=== PATIENT | male | born 1965 | race American Indian/Alaskan Native ===

== ENCOUNTER 2017-06-26 21:50 | Emergency (ER) | payer BC ==
[2017-06-26] MEDS ORDERED: CATAPRES PO ONE (23:20)
[2017-06-26] MEDS ORDERED: CATAPRES ONE (23:24)
[2017-06-27 00:17] LABS: Basophils # (Auto) 0.1 K/mm3 (0.0-0.1); Basophils % (Auto) 0.5 % (0.0-1.8); Eosinophils # (Auto) 0.2 K/mm3 (0.0-0.4); Hematocrit 46.7 % (35.5-45.6); Hemoglobin 15.2 gm/dl (11.8-15.2); Lymphocytes # (Auto) 2.6 K/mm3 (1.2-5.4); Lymphocytes % (Auto) 21.6 % (13.4-35.0); Mean Corpuscular HGB Conc 33 % (32-34); Mean Corpuscular Hemoglobin 29 pg (28-32); Mean Corpuscular Volume 90 fl (84-94); Monocytes # (Auto) 0.9 K/mm3 (0.0-0.8); Monocytes % (Auto) 7.7 % (0.0-7.3); Platelet Count 342 K/mm3 (140-440); Red Blood Count 5.18 M/mm3 (3.65-5.03); Red Cell Distribution Width 12.7 % (13.2-15.2)
--- NOTE | 2017-06-27 00:37 | Cat Scan Report ---
FINAL REPORT PROCEDURE: CT HEAD/BRAIN WO CON TECHNIQUE: Computerized tomography of the head was performed without contrast material. HISTORY: LAMBERT, elevated BP COMPARISON: No prior studies are available for comparison. FINDINGS: Brain: There is no evidence of intracranial hemorrhage. No parenchymal hemorrhage is seen. No mass lesions or mass effect is identified. No abnormal extra-axial fluid collections or masses are seen. There is some decreased density seen in the periventricular white matter without mass effect. This is fairly symmetric and does not exhibit any mass effect consistent with gliosis probably on the basis of microvascular disease or white matter changes of aging. Ventricles: The ventricles are normal size and are midline. Bones: No evidence of acute fracture. Paranasal sinuses: There is moderate mucosal thickening in multiple ethmoid air cells. There also nodular mucosal thickening anteriorly in the sphenoid sinus. Mild mucosal thickening seen in the right side of the frontal sinus posteriorly and laterally. Visualized paranasal sinuses otherwise appear clear. Mastoid air cells: clear IMPRESSION: There is a small amount of decreased density in the periventricular white matter without mass effect suggesting gliosis likely on the basis of microvascular disease or white matter changes of aging. No acute intracranial abnormalities are identified. No hemorrhage is seen. Mild to moderate paranasal sinus disease as described.
[2017-06-27 00:39] LABS: BUN/Creatinine Ratio 10; Blood Urea Nitrogen 14 mg/dL (9-20); Calcium 9.9 mg/dL (8.4-10.2); Hemolysis Index 13
[2017-06-27] MEDS ORDERED: CATAPRES PO ONE (10:46)
--- NOTE | 2017-06-27 10:50 | Emergency Department Report ---
ED General Adult HPI - General Chief complaint: High BP Stated complaint: HIGH BLOOD PRESSURE Time Seen by Provider: 06/27/17 10:41 Source: patient Mode of arrival: Ambulatory Limitations: No Limitations - History of Present Illness Initial comments: Patient is 51 years old male history of hypertension, noncompliant with his his medication. Patient stated that he does not remember the last time he took and a blood pressure medicine. He was sent from orthopedics office because they found that his blood pressure is 230/112. Patient stated that he is dealing with a lot of stress at home. Patient denied any suicidal or homicidal ideation. Patient denied headache, weakness numbness or tingling sensation. Patient denied any neck pain or neck stiffness no fever. No bowel or bladder incontinence. Patient denied any chest pain or shortness of breath. Severity scale (0 -10): 0 - Related Data Home Medications Medication Instructions Recorded Confirmed Last Taken One Daily Multivitamin Tablet 1 tab PO DAILY 06/27/17 06/27/17 06/26/17 Previous Rx's Medication Instructions Recorded Last Taken Type Hydrochlorothiazide [HCTZ] 25 mg PO QDAY #30 tablet 06/27/17 Unknown Rx amLODIPine [Norvasc] 5 mg PO DAILY #30 tab 06/27/17 Unknown Rx Allergies Allergy/AdvReac Type Severity Reaction Status Date / Time No Known Allergies Allergy Verified 06/26/17 23:40 ED Review of Systems ROS: Stated complaint: HIGH BLOOD PRESSURE Other details as noted in HPI Comment: All other systems reviewed and negative Constitutional: denies: chills, fever Respiratory: denies: cough, orthopnea, shortness of breath, SOB with exertion, SOB at rest Cardiovascular: denies: chest pain, palpitations, dyspnea on exertion, orthopnea , edema Gastrointestinal: denies: abdominal pain, nausea, vomiting, diarrhea, constipation, hematemesis Genitourinary: denies: urgency, frequency, hematuria Musculoskeletal: denies: back pain Neurological: denies: headache, weakness, numbness, paresthesias, confusion, abnormal gait ED Past Medical Hx - Past Medical History Previous Medical History?: Yes Hx Hypertension: Yes - Surgical History Past Surgical History?: No - Social History Smoking Status: Never Smoker Substance Use Type: None - Medications Home Medications: Home Medications Medication Instructions Recorded Confirmed Last Taken Type Hydrochlorothiazide [HCTZ] 25 mg PO QDAY #30 tablet 06/27/17 Unknown Rx One Daily Multivitamin Tablet 1 tab PO DAILY 06/27/17 06/27/17 06/26/17 History amLODIPine [Norvasc] 5 mg PO DAILY #30 tab 06/27/17 Unknown Rx ED Physical Exam - General Limitations: No Limitations General appearance: alert, in no apparent distress - Head Head exam: Present: atraumatic, normocephalic - Eye Eye exam: Present: normal appearance, PERRL - ENT ENT exam: Present: normal exam, normal orophraynx, mucous membranes moist - Respiratory Respiratory exam: Present: normal lung sounds bilaterally. Absent: respiratory distress, wheezes, rales, rhonchi, stridor, decreased breath sounds, prolonged expiratory - Cardiovascular Cardiovascular Exam: Present: regular rate, normal rhythm, normal heart sounds - GI/Abdominal GI/Abdominal exam: Present: soft, normal bowel sounds. Absent: distended, tenderness, guarding, rebound, rigid, organomegaly, mass, bruit, pulsatile mass , hernia - Extremities Exam Extremities exam: Present: normal inspection, full ROM, normal capillary refill - Back Exam Back exam: Present: normal inspection, full ROM. Absent: tenderness, CVA tenderness (R), CVA tenderness (L), muscle spasm, paraspinal tenderness, vertebral tenderness, rash noted - Neurological Exam Neurological exam: Present: alert, oriented X3, CN II-XII intact, normal gait - Psychiatric Psychiatric exam: Present: normal mood - Skin Skin exam: Present: warm ED Course Vital Signs 06/26/17 06/26/17 06/27/17 23:25 23:28 03:33 Temperature 99.1 F Pulse Rate 122 H 122 H 129 H Respiratory 18 Rate Blood Pressure 222/142 222/142 Blood Pressure 196/136 [Right] O2 Sat by Pulse 98 Oximetry 06/27/17 06/27/17 06/27/17 09:38 11:06 11:16 Temperature 98.4 F 98.7 F Pulse Rate 100 H 94 H Respiratory 18 16 Rate Blood Pressure 206/136 202/138 Blood Pressure 202/138 [Right] O2 Sat by Pulse 98 97 Oximetry 06/27/17 06/27/17 06/27/17 11:17 11:30 12:00 Temperature Pulse Rate 100 H 106 H Respiratory 16 14 10 L Rate Blood Pressure 198/136 196/139 Blood Pressure [Right] O2 Sat by Pulse 97 99 Oximetry 06/27/17 06/27/17 12:30 13:00 Temperature Pulse Rate 100 H 74 Respiratory 15 12 Rate Blood Pressure 196/139 130/86 Blood Pressure [Right] O2 Sat by Pulse 96 Oximetry - Reevaluation(s) Reevaluation #1: 06/27/17 13:15 Patient is alert, oriented 3. Patient denied any chest pain, headache or shortness of breath. Patient advised to follow-up with his primary care physician for further management. ED Medical Decision Making - Lab Data Result diagrams: 06/26/17 23:52 06/26/17 23:52 Critical care attestation.: If time is entered above; I have spent that time in minutes in the direct care of this critically ill patient, excluding procedure time. ED Disposition Clinical Impression: Malignant hypertension Disposition: DC-01 TO HOME OR SELFCARE Is pt being admited?: No Condition: Stable Instructions: Hypertension (ED) Prescriptions: amLODIPine [Norvasc] 5 mg PO DAILY #30 tab Hydrochlorothiazide [HCTZ] 25 mg PO QDAY #30 tablet Referrals: PRIMARY CARE, [Primary Care Provider] - 3-5 Days
[2017-06-27 13:05] VITALS: BP 130/86
== END 2017-06-27 14:40 | disposition home or self-care (01) ==
LOC: ED 21:50
DX: I10 Essential (primary) hypertension (principal); Z91.14 Patient's other noncompliance with medication regimen
CPT/HCPCS: 36415; 70450; 80048; 85025

== ENCOUNTER 2021-09-17 13:50 | Inpatient (IN) | payer SELFPAY ==
[2021-09-17 16:19] LABS: Hematocrit 42.7 % (35.5-45.6); Hemoglobin 13.7 gm/dl (11.8-15.2); Mean Corpuscular HGB Conc 32 % (32-34); Mean Corpuscular Volume 92 fl (84-94); Platelet Count 234 K/mm3 (140-440); Red Blood Count 4.62 M/mm3 (3.65-5.03); Red Cell Distribution Width 14.7 % (13.2-15.2)
[2021-09-17 16:30] LABS: Calcium 9.5 mg/dL (8.4-10.2)
[2021-09-17 17:16] LABS: Basophils % (Manual) 0 % (0.0-1.8); Total Cells Counted 100
[2021-09-17 17:17] LABS: Platelet Estimate Consistent w Auto; RBC Morphology Normal
--- NOTE | 2021-09-17 17:21 | XRay Report ---
XR chest routine 2V INDICATION / CLINICAL INFORMATION: ble edema. COMPARISON: None available. FINDINGS: SUPPORT DEVICES: None. HEART /PULMONARY VASCULATURE: Heart is enlarged. There is mild pulmonary vasculature congestion. LUNGS / PLEURA: No focal airspace consolidation. No sizable pleural effusion. No pneumothorax. ADDITIONAL FINDINGS: No significant additional findings. IMPRESSION: Cardiac enlargement with mild congestion of the pulmonary vasculature. Signer Name: David Gilmore MD Signed: 09/17/2021 5:17 PM Workstation Name: [id number]
[2021-09-17 17:31] LABS: Chol/HDL Ratio 2.43 %
[2021-09-17] MEDS ORDERED: FUROSEMIDE 40 MG/4 ML INJ IV ONE (17:42)
[2021-09-17] MEDS ORDERED: NITROGLYCERIN 2% OINT 1 GM TP ONE (17:42)
[2021-09-17] MEDS ORDERED: ENOXAPARIN 100 MG/1 ML INJ SUB-Q ONE (17:44)
--- NOTE | 2021-09-17 17:55 | Emergency Department Report ---
HPI - General Chief Complaint: Extremity Problem,Nontraumatic Time Seen by Provider: 09/17/21 17:14 - HPI HPI: For the last 2 weeks Mr. Owen has been experiencing dyspnea on exertion and minimal orthopnea. He denies any chest pain nausea vomiting fever shortness of breath or any other associated symptoms other than severe bilateral lower extremity swelling which has been there since about 2 weeks ago and it usually gets worse during the day because he is on his feet all day. Just walking a little bit makes the patient very short of breath. There within the makes this better is rest and elevation of his lower extremities. He has a history of high blood pressure and has not seen a doctor in a couple years. ED Past Medical Hx - Past Medical History Hx Hypertension: Yes Hx Congestive Heart Failure: No Hx Diabetes: No Hx Asthma: No Hx COPD: No Hx HIV: No Additional medical history: Back pain - Surgical History Past Surgical History?: No - Family History Family history: no significant - Social History Smoking Status: Former Smoker Substance Use Type: Alcohol (Drinks occasional wine but not an abuser) - Medications Home Medications: Home Medications Medication Instructions Recorded Confirmed Last Taken Type One Daily Multivitamin Tablet 1 tab PO DAILY 06/27/17 07/04/17 07/03/17 History amLODIPine 10 mg PO QDAY #30 tablet 07/05/17 Unknown Rx hydrALAZINE [Apresoline TAB] 100 mg PO TID #90 tab 07/05/17 Unknown Rx ED Review of Systems ROS: Stated complaint: PAIN/SWOLLEN LEGS Other details as noted in HPI Other: All other systems reviewed and negative. Physical Exam - Physical Exam Vital Signs: Vital Signs 09/17/21 09/17/21 15:28 17:21 Temperature 100.0 F H Pulse Rate 144 H 136 H Respiratory 20 24 Rate Blood Pressure 174/124 Blood Pressure 182/128 [Right] O2 Sat by Pulse 98 96 Oximetry Physical Exam: Physical Exam: Constitutional: AAOX3. No acute distress. No diaphoresis. HENT: Normocephalic. Pupils equal and reactive. No throat edema or erythema. Neck: No neck rigidity or tenderness. Cardiovascular: Heart sounds: No murmur. Tachycardic rate and regular rhythm. Pulses: Intact distal pulses. Lungs: No wheezing or rales. Chest wall: No tenderness. Abdominal: No distension. No mass/pulsatile mass. No abdominal tenderness, guarding nor rebound. Musculoskeletal: Normal range of motion. There is severe bilateral lower extremity edema going all the way up the distal half of the patient's thighs. There is no calf tenderness to palpation. Skin: Warm and dry. Neurological: Alert and oriented to person, place, and time. Psychiatric: Mood and affect normal. Normal cognition and memory. Normal judg ement. ED Course Vital Signs 09/17/21 09/17/21 15:28 17:21 Temperature 100.0 F H Pulse Rate 144 H 136 H Respiratory 20 24 Rate Blood Pressure 174/124 Blood Pressure 182/128 [Right] O2 Sat by Pulse 98 96 Oximetry - Reevaluation(s) Reevaluation #1: 09/17/21 17:53 EKG done interpreted at 1532 shows a rate of 132, tachycardia. There is severe LVH with ST segment elevation likely related to the LVH and repolarization abnormality. There are some T wave inversions in the lateral leads. Reevaluation #2: 09/17/21 18:47 Patient's blood pressure came down to the 140s over 111 after the 1 inch of Nitropaste on the 80 mg of Lasix that we gave him. He is starting to diurese. His repeat cardiac enzyme was negative. I spoke to Dr. Omar Garay who agrees that the patient is likely in congestive heart failure. He will be admitted. I spoke to Dr. Carbajal who will admit the patient. ED Medical Decision Making - Lab Data Result diagrams: 09/17/21 15:55 09/17/21 15:55 Critical care attestation.: If time is entered above; I have spent that time in minutes in the direct care of this critically ill patient, excluding procedure time. ED Disposition Clinical Impression: Congestive heart failure Disposition: 02 [facility] Is pt being admited?: Yes Does the pt Need Aspirin: Yes Condition: Stable Time of Disposition: 18:50
[2021-09-17] MEDS ORDERED: ASPIRIN 81 MG TAB CHEW PO ONE ×2 (17:56→18:48)
[2021-09-17] MEDS ORDERED: ENALAPRILAT 2.5 MG/2 ML INJ IV ONE (18:49)
--- NOTE | 2021-09-17 19:28 | History and Physical Report ---
History of Present Illness Chief complaint: I get short of breath and tired really easily History of present illness: 55 YO Male with Obesity Hypoventilation Syndrome, HTN, LDD presents to ED for evaluation. Patient reports "I get short of breath and tired very easily". Patient states that for the past 2 weeks he has experienced shortness of breath, decreased exercise tolerance, generalized weakness, dyspnea on exertion, dyspnea at rest, lower extremity edema, orthopnea, paroxysmal nocturnal dyspnea. Patient acknowledges noncompliance with antihypertensive medication. Patient acknowledges 8 pound weight gain over the past week. Patient transported to [facility] via private vehicle for further care and evaluation of the aforementioned symptoms. The patient was seen and evaluated in the emergency department. All lab and imaging studies reviewed. Patient found to have clinical symptoms as well as finding consistent with CHF decompensation, acute kidney injury, systemic inflammatory response syndrome, urinary tract infection, as well as cardiorenal syndrome. Patient admitted to telemetry and initiated on CHF protocol. Cardiology team consulted in ED. Nephrology team consulted in ED. Patient denies fever, chills, chest pain, palpitation, adductive cough, skin rash, recent contact, known exposure to COVID-19. Prior admission on 07/03/2017 reviewed. All medication listed at time of admission has been reconciled. Advanced care planning conducted in ED. Past History Past Medical History: hypertension, other (See HPI) Past Surgical History: No surgical history, Other (Reviewed) Social history: . denies: smoking, alcohol abuse, prescription drug abuse Family history: hypertension Medications and Allergies Allergies Allergy/AdvReac Type Severity Reaction Status Date / Time No Known Allergies Allergy Verified 06/26/17 23:40 Home Medications Medication Instructions Recorded Confirmed Last Taken Type One Daily Multivitamin Tablet 1 tab PO DAILY 06/27/17 07/04/17 07/03/17 History amLODIPine 10 mg PO QDAY #30 tablet 07/05/17 Unknown Rx hydrALAZINE [Apresoline TAB] 100 mg PO TID #90 tab 07/05/17 Unknown Rx Review of Systems Constitutional: weight gain, weakness, no weight loss, no fever, no chills Ears, nose, mouth and throat: no ear pain, no tinnitis, no nose pain, no nasal discharge Cardiovascular: orthopnea, shortness of breath, dyspnea on exertion, paroxysmal nocturnal dyspnea, high blood pressure, leg edema, decreased exercise tolerance, no chest pain Respiratory: no cough, no cough with sputum, no excessive sputum Gastrointestinal: no abdominal pain, no nausea, no vomiting, no diarrhea Genitourinary Male: no hematuria, no flank pain, no discharge, no urinary frequency, no urinary hesitancy Rectal: no pain, no incontinence, no bleeding Musculoskeletal: no neck stiffness, no neck pain, no shooting arm pain, no arm numbness/tingling, no low back pain Integumentary: no rash, no pruritis, no redness, no sores, no wounds Neurological: no head injury, no paralysis, no weakness, no tingling, no seizures, no syncope Psychiatric: no anxiety, no memory loss, no sleep disturbances, no hypersomnia, no suicidal ideation Endocrine: no cold intolerance, no heat intolerance, no polyuria Hematologic/Lymphatic: no easy bruising, no easy bleeding Allergic/Immunologic: no allergic rhinitis Exam - Constitutional Vitals: Temp Pulse Resp BP Pulse Ox 100.0 F H 130 H 24 149/111 96 09/17/21 15:28 09/17/21 18:40 09/17/21 17:21 09/17/21 18:40 09/17/21 17:21 General appearance: Present: mild distress, obese - EENT Eyes: Present: PERRL ENT: hearing intact, clear oral mucosa - Neck Neck: Present: supple, normal ROM - Respiratory Respiratory effort: normal Respiratory: bilateral: rales - Cardiovascular Heart Sounds: Present: S1 & S2. Absent: rub, click - Extremities Extremities: pulses symmetrical Extremity abnormal: edema Peripheral Pulses: within normal limits - Abdominal General gastrointestinal: Present: soft, non-tender, non-distended, normal bowel sounds Male genitourinary: Present: normal - Integumentary Integumentary: Present: clear, warm, dry - Musculoskeletal Musculoskeletal: gait normal, strength equal bilaterally - Psychiatric Psychiatric: appropriate mood/affect, intact judgment & insight - Neurologic Neurologic: CNII-XII intact, moves all extremities HEART Score - HEART Score Troponin: Troponin T 0.029 ng/mL (0.00-0.029) 09/17/21 17:53 Results - Labs CBC & Chem 7: 09/17/21 15:55 09/17/21 15:55 Labs: Abnormal lab results 09/17/21 09/17/21 09/17/21 Range/Units 15:55 15:55 15:55 WBC 13.7 H (4.5-11.0) K/mm3 Seg Neuts % (Manual) 91.0 H (40.0-70.0) % Lymphocytes % (Manual) 6.0 L (13.4-35.0) % Seg Neutrophils # Man 12.5 H (1.8-7.7) K/mm3 Lymphocytes # (Manual) 0.8 L (1.2-5.4) K/mm3 BUN 24 H (9-20) mg/dL Creatinine 2.0 H (0.8-1.3) mg/dL Glucose 129 H (75-100) mg/dL Troponin T 0.034 H (0.00-0.029) ng/mL NT-Pro-B Natriuret Pep 8008 H (0-900) pg/mL Assessment and Plan - Patient Problems (1) Congestive heart failure Status: Acute Qualifiers: Heart failure type: systolic Heart failure chronicity: acute Qualified Code(s): I50.21 - Acute systolic (congestive) heart failure Plan to address problem: Strict I's/O, monitoring output every shift, daily weight, afterload reduction, blood pressure control, thyroid panel, magnesium level, cardiology team consulted in ED, echocardiogram ordered and is pending at time of admission, supplemental oxygen. (2) Acute kidney injury (CORBY) with acute tubular necrosis (ATN) Status: Acute Plan to address problem: BMP, IV fluid resuscitation therapy as clinical indicated, repeat BMP in a.m. to monitor serum creatinine as well as GFR. (3) Cardiorenal syndrome Status: Acute Plan to address problem: supportive care, monitor fluid balance, strict I's/O, nephrology team consulted in ED (4) SIRS (systemic inflammatory response syndrome) Status: Acute Plan to address problem: CBC, chest x-ray, urinalysis, empiric IV antibiotic therapy x1 dose, repeat CBC in a.m. (5) Accelerated hypertension Status: Acute Plan to address problem: Monitor blood pressure every shift, continue medical management. (6) UTI (urinary tract infection) Status: Acute Qualifiers: Encounter type: initial encounter Plan to address problem: Urinalysis, IV antibiotic therapy, (7) DVT prophylaxis Status: Acute Plan to address problem: SCD to bilateral lower extremities while in bed (8) Advance care planning Status: Acute Plan to address problem: Disease education conducted, care plan discussed, diagnoses discussed, prognosis discussed, patient is full code. Patient acknowledges understanding and agreement with care plan, +30 minutes. (9) Preventative health care Status: Acute Plan to address problem: Patient counseled regarding balanced diet, risk factor reduction, increase physical activity discharge, meal planning, outpatient follow-up with primary care physician for all age-appropriate and risk factor appropriate screening test. +30 minutes.
[2021-09-17] MEDS ORDERED: ALBUTEROL 2.5 MG/3 ML NEBU IH PRN (19:30)
[2021-09-17] MEDS ORDERED: HYDROmorphone 0.5 MG/0.5 ML INJ IV PRN (19:30)
[2021-09-17] MEDS ORDERED: oxyCODONE /ACETAMINOPHEN 5-325MG TAB PO PRN (19:30)
[2021-09-17] MEDS ORDERED: ONDANSETRON 4 MG/2 ML INJ IV PRN (19:30)
[2021-09-17] MEDS ORDERED: ACETAMINOPHEN 325 MG TAB PO PRN (19:30)
[2021-09-17 20:11] LABS: Free T4 (Free Thyroxine) 1.48 ng/dL (0.76-1.46)
[2021-09-17] MEDS ORDERED: ASPIRIN 81 MG TAB CHEW ONE (21:38)
[2021-09-17] MEDS ORDERED: LISINOPRIL 5 MG TAB PO SCH (22:00)
[2021-09-17] MEDS ORDERED: METOPROLOL TARTRATE 25 MG TAB PO SCH (22:00)
[2021-09-18 05:13] LABS: Basophils % (Auto) 0.2 % (0.0-1.8); Hemoglobin 12.9 gm/dl (11.8-15.2); Lymphocytes # (Auto) 0.7 K/mm3 (1.2-5.4); Lymphocytes % (Auto) 7.1 % (13.4-35.0); Mean Corpuscular HGB Conc 34 % (32-34); Mean Corpuscular Volume 92 fl (84-94); Monocytes # (Auto) 0.3 K/mm3 (0.0-0.8); Monocytes % (Auto) 3.3 % (0.0-7.3); Platelet Count 218 K/mm3 (140-440); Red Blood Count 4.12 M/mm3 (3.65-5.03); Red Cell Distribution Width 14.4 % (13.2-15.2)
[2021-09-18 05:48] LABS: Calcium 8.9 mg/dL (8.4-10.2)
[2021-09-18] MEDS: FUROSEMIDE 40 MG/4 ML INJ IV SCH ×2 (06:04→18:07)
--- NOTE | 2021-09-18 09:52 | Event Note ---
Full consult dictated. Thanks.
[2021-09-18] MEDS: METOPROLOL TARTRATE 25 MG TAB PO SCH ×2 (09:56→21:00)
--- NOTE | 2021-09-18 10:25 | Consultation ---
History of Present Illness - Reason for Consult Consult date: 09/18/21 chronic renal failure - History of Present Illness The patient is a 42 YO male with history significant for Morbid Obesity, HTN, LDD and CKD-3 who presented to [facility] ED 09/17/21 with c/o sob and LE swelling for past 2-3 weeks. Admits to decreased exercise tolerance, dyspnea on exertion, dyspnea at rest, orthopnea, paroxysmal nocturnal dyspnea, bilateral lower extremity swelling and increase in the abdominal girth. Patient acknowledges noncompliance with antihypertensive medication. Patient denies fever, chills, chest pain, palpitations, dysuria, hematuria, skin rash, recent contact, or known exposure to COVID-19, syncope. Denies kidney stone or NSAID use. CXR showed Cardiomegaly and central pulmonary venous congestion. Labs notable for Creat 2 and BUN 24. Patient was admitted with decompensated CHF and Cardiorenal syndrome. Nephrology consulted for further evaluation and treatment of CORBY. Past History Past Medical History: hypertension, other (See HPI) Past Surgical History: No surgical history, Other (Reviewed) Social history: . denies: smoking, alcohol abuse, prescription drug abuse Family history: hypertension Medications and Allergies Allergies Allergy/AdvReac Type Severity Reaction Status Date / Time No Known Allergies Allergy Verified 06/26/17 23:40 Home Medications Medication Instructions Recorded Confirmed Last Taken Type One Daily Multivitamin Tablet 1 tab PO DAILY 06/27/17 09/18/21 09/14/21 History amLODIPine 10 mg PO QDAY #30 tablet 07/05/17 09/18/21 08/23/21 Rx hydrALAZINE [Apresoline TAB] 100 mg PO TID #90 tab 07/05/17 09/18/21 08/23/21 Rx Active Meds: Active Medications Acetaminophen (Acetaminophen 325 Mg Tab) 650 mg PO Q4H PRN PRN Reason: Pain MILD(1-3)/Fever >100.5/LAMBERT Albuterol (Albuterol 2.5 Mg/3 Ml Nebu) 2.5 mg IH Q4HRT PRN PRN Reason: Shortness Of Breath Furosemide (Furosemide 40 Mg/4 Ml Inj) 40 mg IV BID@0600,1800 JIMMY Last Admin: 09/18/21 06:04 Dose: 40 mg Hydromorphone HCl (Hydromorphone 0.5 Mg/0.5 Ml Inj) 0.5 mg IV Q23H PRN PRN Reason: Pain , Severe (7-10) Metoprolol Tartrate (Metoprolol Tartrate 25 Mg Tab) 25 mg PO BID [facility] Last Admin: 09/18/21 09:56 Dose: 25 mg Ondansetron HCl (Ondansetron 4 Mg/2 Ml Inj) 4 mg IV Q8H PRN PRN Reason: Nausea And Vomiting Oxycodone/Acetaminophen (Oxycodone /Acetaminophen 5-325mg Tab) 1 tab PO Q6H PRN PRN Reason: Pain, Moderate (4-6) Sodium Chloride (Sodium Chloride 0.9% 10 Ml Flush Syringe) 10 ml IV BID [facility] Last Admin: 09/18/21 09:56 Dose: 10 ml Sodium Chloride (Sodium Chloride 0.9% 10 Ml Flush Syringe) 10 ml IV PRN PRN PRN Reason: LINE FLUSH Review of Systems All systems: negative Exam - Vital Signs Vital signs: Vital Signs Temp Pulse Resp BP Pulse Ox 100.0 F H 144 H 20 174/124 98 09/17/21 15:28 09/17/21 15:28 09/17/21 15:28 09/17/21 15:28 09/17/21 15:28 Results - Lab Results 09/18/21 04:37 09/18/21 04:37 Most recent lab results Calcium 8.9 mg/dL (8.4-10.2) 09/18/21 04:37 Magnesium 2.10 mg/dL (1.7-2.3) 09/17/21 17:10 Assessment and Plan 1. CKD stage 3: Known h/o CKD-3. Since 2018 creatinine level has increased from 1.7 to 1.9. Most likely progressive CKD. Renal US negative. Urine studies ordered. Monitor renal function and UOP. Creatinine leveled off. Avoid nephrotoxic agents. Meds dosage based on GFR. 2. FEN: Volume overload, on IV Lasix. Monitor lytes and volume status. 3. Decompensated CHF, POA: Unknown EF. Echo pending. Strict I's/O, monitor urine output every shift, daily weight, afterload reduction, blood pressure control, diuresis. Cardiology team aware of this patient. 4. Hypertensive urgency: Monitor BP. Will sign of. F/u in 1-2 weeks after discharge. Please call with any questions. Subjective: Patient was seen and examined at the chairside. Examination: General appearance: well-developed, well-nourished, appears stated age, obese, no distress HEENT: ATNC, no icterus Neck: trachea midline, JVD Respiratory: diminished breath sounds b/l Cardiology: regular, S1S2, no murmur Gastrointestinal: soft, obese, normoactive bowel sounds, not tender, ND Integumentary: no rash Neurologic: AO, able to move extremities Ext: 3+ LE edema noted
--- NOTE | 2021-09-18 11:26 | Progress Note ---
Assessment and Plan 55-year-old male presented to the hospital with complaints of reported bleeding admitted for possible CHF exacerbation. 09/18: Continue diuresis as tolerated, follow 2D echocardiogram report, monitor BMP. Cardiology and nephrology following Assessment and plan: (1) Congestive heart failure Status: Acute Qualifiers: Heart failure type: systolic Heart failure chronicity: acute Qualified Code(s): I50.21 - Acute systolic (congestive) heart failure Plan to address problem: Strict I's/O, monitoring output every shift, daily weight, afterload reduction, blood pressure control, thyroid panel, magnesium level, cardiology team consulted in ED, echocardiogram ordered and is pending at time of admission, supplemental oxygen. (2) Acute kidney injury (CORBY) with acute tubular necrosis (ATN) Status: Acute Plan to address problem: BMP, IV fluid resuscitation therapy as clinical indicated, repeat BMP in a.m. to monitor serum creatinine as well as GFR. (3) Cardiorenal syndrome Status: Acute Plan to address problem: supportive care, monitor fluid balance, strict I's/O, nephrology team consulted in ED (4) SIRS (systemic inflammatory response syndrome) Status: Acute Plan to address problem: CBC, chest x-ray, urinalysis, empiric IV antibiotic therapy x1 dose, repeat CBC in a.m. (5) Accelerated hypertension Status: Acute Plan to address problem: Monitor blood pressure every shift, continue medical management. (6) UTI (urinary tract infection) Status: Acute Qualifiers: Encounter type: initial encounter Plan to address problem: Urinalysis, IV antibiotic therapy, (7) DVT prophylaxis Status: Acute Plan to address problem: SCD to bilateral lower extremities while in bed (8) Advance care planning Status: Acute Plan to address problem: Disease education conducted, care plan discussed, diagnoses discussed, prognosis discussed, patient is full code. Patient acknowledges understanding and agreement with care plan, +30 minutes. (9) Preventative health care Status: Acute Plan to address problem: Patient counseled regarding balanced diet, risk factor reduction, increase physical activity discharge, meal planning, outpatient follow-up with primary care physician for all age-appropriate and risk factor appropriate screening test. +30 minutes. Subjective Date of service: 09/18/21 Interval history: Patient seen and examined. Medical records and medication list reviewed. No acute event overnight noted by the RN. Patient complains of extensive bilateral lower extremity swelling. Patient is tolerating diet. Discussed plan of care at bedside with patient. Objective - Exam Narrative Exam: GENERAL: well-developed and morbidly obese -[place] male lying on bed appeared to be in no discomfort. HEENT: Normocephalic. Atraumatic. No conjunctival congestion or icterus. Patient has moist mucous membranes. NECK: Supple. Trachea midline. CHEST/LUNGS: Diminished breath sound bilaterally HEART/CARDIOVASCULAR: Regular in rate and rhythm. S1 and S2 positive. ABDOMEN: Abdomen is soft, nontender. Patient has normal bowel sounds. SKIN: There is no rash. Warm and dry. NEURO: No focal motor deficit. Follows command. MUSCULOSKELETAL: No joint effusion or tenderness. EXTRIMITY: +ve edema, no cyanosis or clubbing. PSYCH: Cooperative. - Constitutional Vitals: Vital Signs - 12hr 09/18/21 09/18/21 09/18/21 00:56 00:58 02:18 Temperature 97.7 F 100.0 F H Pulse Rate 115 H 127 H 112 H Respiratory 22 18 Rate Blood Pressure 135/105 Blood Pressure 120/78 [Right] O2 Sat by Pulse 95 95 Oximetry 09/18/21 09/18/21 09/18/21 02:30 04:33 07:15 Temperature 99.6 F 98.6 F Pulse Rate 50 L 123 H Respiratory 18 18 Rate Blood Pressure 137/93 149/95 Blood Pressure [Right] O2 Sat by Pulse 98 96 97 Oximetry 09/18/21 10:00 Temperature Pulse Rate 123 H Respiratory Rate Blood Pressure Blood Pressure [Right] O2 Sat by Pulse 97 Oximetry - Labs CBC & Chem 7: 09/18/21 04:37 09/19/21 04:39 Labs: Abnormal lab results 09/17/21 09/17/21 09/17/21 Range/Units 15:55 15:55 15:55 WBC 13.7 H (4.5-11.0) K/mm3 Lymph % (Auto) (13.4-35.0) % Lymph # (Auto) (1.2-5.4) K/mm3 Seg Neutrophils % (40.0-70.0) % Seg Neuts % (Manual) 91.0 H (40.0-70.0) % Lymphocytes % (Manual) 6.0 L (13.4-35.0) % Seg Neutrophils # (1.8-7.7) K/mm3 Seg Neutrophils # Man 12.5 H (1.8-7.7) K/mm3 Lymphocytes # (Manual) 0.8 L (1.2-5.4) K/mm3 Carbon Dioxide (22-30) mmol/L BUN 24 H (9-20) mg/dL Creatinine 2.0 H (0.8-1.3) mg/dL Glucose 129 H (75-100) mg/dL Troponin T 0.034 H (0.00-0.029) ng/mL NT-Pro-B Natriuret Pep 8008 H (0-900) pg/mL Free T4 (0.76-1.46) ng/dL 09/17/21 09/18/21 09/18/21 Range/Units 17:10 04:37 04:37 WBC (4.5-11.0) K/mm3 Lymph % (Auto) 7.1 L (13.4-35.0) % Lymph # (Auto) 0.7 L (1.2-5.4) K/mm3 Seg Neutrophils % 89.4 H (40.0-70.0) % Seg Neuts % (Manual) (40.0-70.0) % Lymphocytes % (Manual) (13.4-35.0) % Seg Neutrophils # 9.1 H (1.8-7.7) K/mm3 Seg Neutrophils # Man (1.8-7.7) K/mm3 Lymphocytes # (Manual) (1.2-5.4) K/mm3 Carbon Dioxide 20 L (22-30) mmol/L BUN 26 H (9-20) mg/dL Creatinine 1.9 H (0.8-1.3) mg/dL Glucose 112 H (75-100) mg/dL Troponin T (0.00-0.029) ng/mL NT-Pro-B Natriuret Pep (0-900) pg/mL Free T4 1.48 H (0.76-1.46) ng/dL HEART Score - HEART Score Troponin: Troponin T 0.029 ng/mL (0.00-0.029) 09/17/21 17:53
--- NOTE | 2021-09-18 15:38 | Ultrasound Report ---
ULTRASOUND RENAL INDICATION / CLINICAL INFORMATION: Acute renal failure.. COMPARISON: None available. FINDINGS: RIGHT KIDNEY: Length = 11.1 cm. - Echogenicity: Normal. - Parenchymal Thickness: Normal. - Hydronephrosis: None. - Cyst / Mass: None. - Stones: None seen. LEFT KIDNEY: Length = 9.0 cm. - Echogenicity: Normal. - Parenchymal Thickness: Normal. - Hydronephrosis: None. - Cyst / Mass: None. - Stones: None seen. URINARY BLADDER: No significant abnormality. FREE FLUID: Trace free fluid in the abdomen ADDITIONAL FINDINGS: Incidental contracted appearance of the gallbladder IMPRESSION: 1. No acute renal abnormality. 2. Trace ascites and contracted appearance of the gallbladder. Signer Name: Darius Fry MD Signed: 09/18/2021 3:33 PM Workstation Name: [id number]
--- NOTE | 2021-09-18 23:44 | Consultation ---
DATE OF CONSULTATION: 09/18/2021 CARDIOLOGY CONSULTATION REASON FOR CONSULTATION: Advice and opinion regarding shortness of breath. REFERRING PHYSICIAN: Dr. Carbajal HISTORY OF PRESENT ILLNESS: The patient is a very pleasant 55-year-old -[place] gentleman with history of obstructive sleep apnea, hypertension, presents here with shortness of breath for the past 2 weeks, describes dyspnea on exertion, orthopnea, lower extremity edema, PND. He acknowledges noncompliance with antihypertensive regime. 8-pound weight gain over the past week. No recent cardiology evaluation. He is seen on telemetry. Denies any chest pain, shortness of breath. States he feels a lot better. PAST MEDICAL HISTORY: Hypertension, sleep apnea. PAST SURGICAL HISTORY: No surgical history known. SOCIAL HISTORY: . Denies smoking or alcohol. ALLERGIES: No known drug, food, or environmental allergies. REVIEW OF SYSTEMS: As per HPI. No chest pain, blurred vision, headache, nausea or vomiting. Positive leg swelling. No diaphoresis, no hematochezia, melena, hemoptysis or cold or heat intolerance. INPATIENT AND OUTPATIENT MEDICATIONS: Reviewed. PHYSICAL EXAMINATION: VITAL SIGNS: Blood pressure is 140/90. He is afebrile. Tele reveals sinus rhythm, heart rate in the 100-110 range. No dysrhythmias. GENERAL: This is a middle-aged -[place] gentleman in no apparent distress, oriented x 3. HEENT: Sclerae are anicteric. PERRL. NECK: Supple, no mass, no JVD. CHEST: Decreased breath sounds, bibasilar. Overall, moderate air movement. CARDIOVASCULAR: Tachycardic, S1, S2. ABDOMEN: Soft, nontender, nondistended. Normoactive bowel sounds in 4 quadrants. No mass or bruits. EXTREMITIES: 2+ pitting edema in bilateral lower extremities. SKIN: Warm and intact. No rashes. LABORATORY DATA: Reveals a creatinine of 2.0 yesterday, 1.9 today. ProBNP is 8000. Free T4 is 1.4. TSH is 1.7. His EKG reveals sinus tachycardia and LVH. Heart rate now is in the 100-105 range. First troponin is normal. Bicarbonate is 26. Potassium 3.9. ASSESSMENT AND PLAN: In summary, the patient is a pleasant 55-year-old -[place] gentleman. Acute on chronic dyspnea, likely due to congestive heart failure of unclear etiology. Follow up echocardiogram. The patient also has questionable acute kidney injury. We will hold CARLTON inhibitor. We will double metoprolol. Continue IV Lasix. Recommend Nephrology consultation. Watch blood pressure. Cardiac diet. Follow up echocardiography. Thank you for this consultation. I will be happy to follow along with you. TID: [id number] RECEIPT: [id number] THANH
[2021-09-19] MEDS: FUROSEMIDE 40 MG/4 ML INJ IV SCH ×2 (05:09→18:22)
[2021-09-19 05:30] LABS: Bacteria,Urine 1+ /HPF (Negative); Bilirubin,Urine NEG (Negative); Blood,Urine NEG (Negative); Color,Urine Amber (Yellow); Hyaline Casts,Urine 3 /LPF; Mucus,Urine FEW /HPF
[2021-09-19 05:38] LABS: Creatinine,Urine 182.5 mg/dL (0.1-20.0); Protein/Creatinine Ratio,Urine 0.3
[2021-09-19 05:41] LABS: Calcium 8.4 mg/dL (8.4-10.2)
[2021-09-19] MEDS: METOPROLOL TARTRATE 25 MG TAB PO SCH (10:21)
--- NOTE | 2021-09-19 10:46 | Progress Note ---
Assessment and Plan Patient is clinically improved. Telemetry reveals mild sinus tachycardia. No dysrhythmias or ventricular tachycardia See full dictated consultation yesterday. Continue with IV Lasix. Double beta-brandi for better blood pressure control. Heparin for DVT prophylaxis. Follow-up on echocardiography. - Patient Problems (1) Congestive heart failure Current Visit: Yes Status: Acute (2) Acute kidney injury (CORBY) with acute tubular necrosis (ATN) Current Visit: No Status: Acute (3) Cardiorenal syndrome Current Visit: No Status: Acute (4) Hypertensive urgency, malignant Current Visit: No Status: Acute Subjective Interval history: Patient feels much better today. Shortness of breath and leg swelling is improved. Objective Vital Signs Temp Pulse Resp BP BP Pulse Ox 09/19/21 08:06 98.7 F 107 H 18 149/110 93 09/19/21 05:10 98.4 F 105 H 140/102 97 09/19/21 00:38 102 H 09/18/21 23:50 98.4 F 110 H 18 131/89 98 09/18/21 21:02 96 09/18/21 21:00 129 H 143/104 09/18/21 20:00 127 H 09/18/21 19:59 99.6 F 129 H 20 143/104 97 09/18/21 19:43 98 09/18/21 16:01 98.6 F 121 H 18 150/110 94 09/18/21 11:29 98.6 F 109 H 18 134/95 94 - Labs and Meds Comprehensive Metabolic Panel 09/19/21 Range/Units 04:39 Sodium 135 L (137-145) mmol/L Potassium 4.6 (3.6-5.0) mmol/L Chloride 101.7 (98-107) mmol/L Carbon Dioxide 21 L (22-30) mmol/L BUN 37 H (9-20) mg/dL Creatinine 1.9 H (0.8-1.3) mg/dL Glucose 110 H (75-100) mg/dL Calcium 8.4 (8.4-10.2) mg/dL
--- NOTE | 2021-09-19 12:45 | Progress Note ---
Assessment and Plan 55-year-old male presented to the hospital with complaints of reported bleeding admitted for possible CHF exacerbation. 09/18: Continue diuresis as tolerated, follow 2D echocardiogram report, monitor BMP. Cardiology and nephrology following 09/19: 2D echo reveals EF of 15 to 20%, renal ultrasound showed no acute abnormality. Continue aggressive diuresis, continue to monitor renal function and follow cardiology recommendation Assessment and plan: (1) Congestive heart failure Status: Acute Qualifiers: Heart failure type: systolic Heart failure chronicity: acute Qualified Code(s): I50.21 - Acute systolic (congestive) heart failure Plan to address problem: Strict I's/O, monitoring output every shift, daily weight, afterload reduction, blood pressure control, thyroid panel, magnesium level, cardiology team consulted in ED, echocardiogram ordered and is pending at time of admission, supplemental oxygen. (2) Acute kidney injury (CORBY) with acute tubular necrosis (ATN) Status: Acute Plan to address problem: BMP, IV fluid resuscitation therapy as clinical indicated, repeat BMP in a.m. to monitor serum creatinine as well as GFR. (3) Cardiorenal syndrome Status: Acute Plan to address problem: supportive care, monitor fluid balance, strict I's/O, nephrology team consulted in ED (4) SIRS (systemic inflammatory response syndrome) Status: Acute Plan to address problem: CBC, chest x-ray, urinalysis, empiric IV antibiotic therapy x1 dose, repeat CBC in a.m. (5) Accelerated hypertension Status: Acute Plan to address problem: Monitor blood pressure every shift, continue medical management. (6) UTI (urinary tract infection) Status: Acute Qualifiers: Encounter type: initial encounter Plan to address problem: Urinalysis, IV antibiotic therapy, (7) DVT prophylaxis Status: Acute Plan to address problem: SCD to bilateral lower extremities while in bed (8) Advance care planning Status: Acute Plan to address problem: Disease education conducted, care plan discussed, diagnoses discussed, prognosis discussed, patient is full code. Patient acknowledges understanding and agreement with care plan, +30 minutes. (9) Preventative health care Status: Acute Plan to address problem: Patient counseled regarding balanced diet, risk factor reduction, increase physical activity discharge, meal planning, outpatient follow-up with primary care physician for all age-appropriate and risk factor appropriate screening test. +30 minutes. Subjective Date of service: 09/19/21 Interval history: Patient seen and examined. Medical records and medication list reviewed. No acute event overnight noted by the RN. Patient cont to have bilateral lower extremity swelling. Patient is tolerating diet. Discussed plan of care at bedside with patient. Objective - Exam Narrative Exam: GENERAL: well-developed and morbidly obese -Stateless male lying on bed appeared to be in no discomfort. HEENT: Normocephalic. Atraumatic. No conjunctival congestion or icterus. Patient has moist mucous membranes. NECK: Supple. Trachea midline. CHEST/LUNGS: Diminished breath sound bilaterally HEART/CARDIOVASCULAR: Regular in rate and rhythm. S1 and S2 positive. ABDOMEN: Abdomen is soft, nontender. Patient has normal bowel sounds. SKIN: There is no rash. Warm and dry. NEURO: No focal motor deficit. Follows command. MUSCULOSKELETAL: No joint effusion or tenderness. EXTRIMITY: +ve edema, no cyanosis or clubbing. PSYCH: Cooperative. - Constitutional Vitals: Vital Signs - 12hr 09/19/21 09/19/21 09/19/21 05:10 08:06 10:00 Temperature 98.4 F 98.7 F Pulse Rate 105 H 107 H 101 H Respiratory 18 Rate Blood Pressure 149/110 Blood Pressure 140/102 [Right] O2 Sat by Pulse 97 93 97 Oximetry 09/19/21 11:25 Temperature 98.6 F Pulse Rate 101 H Respiratory 18 Rate Blood Pressure 135/99 Blood Pressure [Right] O2 Sat by Pulse 97 Oximetry - Labs CBC & Chem 7: 09/18/21 04:37 09/20/21 04:56 Labs: Abnormal lab results 09/18/21 09/19/21 Range/Units Unknown 04:39 Sodium 135 L (137-145) mmol/L Carbon Dioxide 21 L (22-30) mmol/L BUN 37 H (9-20) mg/dL Creatinine 1.9 H (0.8-1.3) mg/dL Glucose 110 H (75-100) mg/dL Urine Creatinine 182.5 H (0.1-20.0) mg/dL Urine Total Protein 54 H (5-11.8) mg/dL HEART Score - HEART Score Troponin: Troponin T 0.029 ng/mL (0.00-0.029) 09/17/21 17:53
[2021-09-19] MEDS: HEPARIN 5,000 UNIT/1 ML VIAL SUB-Q SCH ×2 (14:52→21:22)
[2021-09-19] MEDS: METOPROLOL TARTRATE 50 MG TAB PO SCH (21:23)
[2021-09-20] MEDS: HEPARIN 5,000 UNIT/1 ML VIAL SUB-Q SCH ×3 (05:38→21:14)
[2021-09-20] MEDS: FUROSEMIDE 40 MG/4 ML INJ IV SCH ×2 (05:38→17:39)
[2021-09-20 06:20] LABS: Calcium 8.5 mg/dL (8.4-10.2)
--- NOTE | 2021-09-20 08:35 | Progress Note ---
Assessment and Plan 55-year-old -[place] gentleman: 1. Acute hypoxemic respiratory failure due to heart failure with reduced ejection fraction * Continue beta-blockade * Echocardiogram revealed ejection fraction of 15 to 20% * Continue IV Lasix * Nearing euvolemia 2. ?CORBY * Likely due to cardiorenal syndrome * Hold CARLTON or ARB * Nephrology is following 3. Physiologic sinus tachycardia due to #1 4. Hypertension 5. Hypertensive heart disease Patient is clinically improve and near euvolemia. Echocardiogram reveals severe LV dysfunction. Add hydralazine for better blood pressure control. Nuclear stress test in a.m. to exclude ischemic etiology of cardiomyopathy. Long discussion with the patient regarding our findings and plan of care. - Patient Problems (1) Congestive heart failure Current Visit: Yes Status: Acute (2) Acute kidney injury (CORBY) with acute tubular necrosis (ATN) Current Visit: No Status: Acute (3) Cardiorenal syndrome Current Visit: No Status: Acute (4) Hypertensive urgency, malignant Current Visit: No Status: Acute Subjective Interval history: Patient feels much better today. Shortness of breath and leg swelling is improved. Objective Vital Signs Temp Pulse Resp BP Pulse Ox 09/20/21 05:09 106 H 98 09/20/21 04:46 98.4 F 20 142/106 09/19/21 23:12 96 09/19/21 22:00 103 H 09/19/21 21:23 58 L 09/19/21 19:55 97 09/19/21 19:48 99.2 F 56 L 18 136/98 96 09/19/21 15:44 98.6 F 106 H 18 128/89 98 09/19/21 11:25 98.6 F 101 H 18 135/99 97 09/19/21 10:00 101 H 95 - Labs and Meds Comprehensive Metabolic Panel 09/20/21 Range/Units 04:56 Sodium 139 (137-145) mmol/L Potassium 3.7 (3.6-5.0) mmol/L Chloride 99.7 (98-107) mmol/L Carbon Dioxide 25 (22-30) mmol/L BUN 40 H (9-20) mg/dL Creatinine 2.1 H (0.8-1.3) mg/dL Glucose 93 (75-100) mg/dL Calcium 8.5 (8.4-10.2) mg/dL
[2021-09-20] MEDS: METOPROLOL TARTRATE 50 MG TAB PO SCH ×2 (10:02→21:15)
--- NOTE | 2021-09-20 12:42 | Progress Note ---
Assessment and Plan 55-year-old male presented to the hospital with complaints of reported bleeding admitted for possible CHF exacerbation. 09/18: Continue diuresis as tolerated, follow 2D echocardiogram report, monitor BMP. Cardiology and nephrology following 09/19: 2D echo reveals EF of 15 to 20%, renal ultrasound showed no acute abnormality. Continue aggressive diuresis, continue to monitor renal function and follow cardiology recommendation 09/20: Continue diuresis and continue to follow BMP. Monitor ins and O's and daily weight. Assessment and plan: (1) Congestive heart failure Status: Acute Qualifiers: Heart failure type: systolic Heart failure chronicity: acute Qualified Code(s): I50.21 - Acute systolic (congestive) heart failure Plan to address problem: Strict I's/O, monitoring output every shift, daily weight, afterload reduction, blood pressure control, thyroid panel, magnesium level, cardiology team consulted in ED, echocardiogram ordered and is pending at time of admission, supplemental oxygen. (2) Acute kidney injury (CORBY) with acute tubular necrosis (ATN) Status: Acute Plan to address problem: BMP, IV fluid resuscitation therapy as clinical indicated, repeat BMP in a.m. to monitor serum creatinine as well as GFR. (3) Cardiorenal syndrome Status: Acute Plan to address problem: supportive care, monitor fluid balance, strict I's/O, nephrology team consulted in ED (4) SIRS (systemic inflammatory response syndrome) Status: Acute Plan to address problem: CBC, chest x-ray, urinalysis, empiric IV antibiotic therapy x1 dose, repeat CBC in a.m. (5) Accelerated hypertension Status: Acute Plan to address problem: Monitor blood pressure every shift, continue medical management. (6) UTI (urinary tract infection) Status: Acute Qualifiers: Encounter type: initial encounter Plan to address problem: Urinalysis, IV antibiotic therapy, (7) DVT prophylaxis Status: Acute Plan to address problem: SCD to bilateral lower extremities while in bed (8) Advance care planning Status: Acute Plan to address problem: Disease education conducted, care plan discussed, diagnoses discussed, prognosis discussed, patient is full code. Patient acknowledges understanding and agreement with care plan, +30 minutes. (9) Preventative health care Status: Acute Plan to address problem: Patient counseled regarding balanced diet, risk factor reduction, increase physical activity discharge, meal planning, outpatient follow-up with primary care physician for all age-appropriate and risk factor appropriate screening test. +30 minutes. Subjective Date of service: 09/20/21 Interval history: Patient seen and examined. Medical records and medication list reviewed. No acute event overnight noted by the RN. Patient cont to have bilateral lower extremity swelling. Patient is tolerating diet. Discussed plan of care at bedside with patient. Objective - Exam Narrative Exam: GENERAL: well-developed and morbidly obese -[place] male lying on bed appeared to be in no discomfort. HEENT: Normocephalic. Atraumatic. No conjunctival congestion or icterus. Patient has moist mucous membranes. NECK: Supple. Trachea midline. CHEST/LUNGS: Diminished breath sound bilaterally HEART/CARDIOVASCULAR: Regular in rate and rhythm. S1 and S2 positive. ABDOMEN: Abdomen is soft, nontender. Patient has normal bowel sounds. SKIN: There is no rash. Warm and dry. NEURO: No focal motor deficit. Follows command. MUSCULOSKELETAL: No joint effusion or tenderness. EXTRIMITY: +ve edema, no cyanosis or clubbing. PSYCH: Cooperative. - Constitutional Vitals: Vital Signs - 12hr 09/20/21 09/20/21 09/20/21 04:46 05:09 07:51 Temperature 98.4 F 98.3 F Pulse Rate 106 H 107 H Respiratory 20 18 Rate Blood Pressure 142/106 150/104 O2 Sat by Pulse 98 94 Oximetry 09/20/21 10:00 Temperature Pulse Rate 103 H Respiratory Rate Blood Pressure O2 Sat by Pulse 96 Oximetry - Labs CBC & Chem 7: 09/18/21 04:37 09/20/21 04:56 Labs: Abnormal lab results 09/20/21 Range/Units 04:56 BUN 40 H (9-20) mg/dL Creatinine 2.1 H (0.8-1.3) mg/dL HEART Score - HEART Score Troponin: Troponin T 0.029 ng/mL (0.00-0.029) 09/17/21 17:53
[2021-09-20] MEDS: hydrALAZINE 10 MG TAB PO SCH ×2 (15:02→21:19)
[2021-09-21 05:35] LABS: Calcium 8.4 mg/dL (8.4-10.2)
[2021-09-21] MEDS: FUROSEMIDE 40 MG/4 ML INJ IV SCH ×2 (06:05→17:06)
[2021-09-21] MEDS: HEPARIN 5,000 UNIT/1 ML VIAL SUB-Q SCH ×3 (06:06→21:26)
[2021-09-21] MEDS: hydrALAZINE 10 MG TAB PO SCH (06:06)
[2021-09-21] MEDS ORDERED: REGADENOSON 0.4 MG/5 ML INJ IV ONE (07:20)
[2021-09-21] MEDS ORDERED: hydrALAZINE 10 MG TAB PO SCH (08:52)
[2021-09-21] MEDS ORDERED: POTASSIUM CHLORIDE ER 20 MEQ TAB PO NR (09:51)
[2021-09-21] MEDS ORDERED: METOPROLOL TARTRATE 50 MG TAB PO SCH (10:47)
--- NOTE | 2021-09-21 11:46 | Progress Note ---
Assessment and Plan Patient is a 55-year-old male with a past medical history of hypertension and TIFFANIE presented with a complaint of shortness of breath for 2-week prior to admission Acute hypoxic respiratory failure Acute HFrEF CORBY-nephrology following Cardiorenal syndrome Hypertension Echo 09/17/2021-EF 15 to 20%. Left ventricle severely dilated. Mild concentric LVH. Mild diastolic dysfunction is present impaired relaxation pattern. No pericardial effusion Preliminary results Lexiscan MPI stress test 09/21/2021-negative for ischemia. Dilated LV. Estimated EF 10% Plan: Echo and stress results noted above Patient reports improvement in respiratory status and reports to continue to have good urine output Continue on Lasix 80 mg IV twice daily for diuresis. When patient is to be discharged patient will be converted to Lasix 40 mg p.o. twice daily Strict I&O's with close monitoring of renal function No CARLTON or ARB due to elevated creatinine Will increase to metoprolol 100 mg p.o. twice daily and hydralazine 25 mg p.o. every 8 hours Patient seen in conjunction with Dr. Ornelas who agrees with plan of care - Patient Problems (1) HFrEF (heart failure with reduced ejection fraction) Current Visit: Yes Status: Acute (2) Accelerated hypertension Current Visit: No Status: Acute (3) Acute kidney injury (CORBY) with acute tubular necrosis (ATN) Current Visit: No Status: Acute (4) Cardiorenal syndrome Current Visit: No Status: Acute Subjective Date of service: 09/21/21 Principal diagnosis: Acute HFrEF Interval history: Patient for stress test this a.m. Sinus 90s patient had an episode of NSVT around 3 AM Objective Vital Signs Temp Pulse Resp BP BP Pulse Ox 09/21/21 10:14 93 09/21/21 06:06 100 H 149/110 09/21/21 04:15 98.4 F 100 H 18 149/110 93 09/21/21 00:15 98.2 F 89 19 141/98 98 09/20/21 22:00 98 09/20/21 21:37 96 09/20/21 21:19 106 H 160/114 09/20/21 21:15 106 H 160/114 09/20/21 20:00 98.2 F 119 H 19 156/121 98 09/20/21 16:10 98.9 F 106 H 18 160/114 96 09/20/21 11:46 98.7 F 93 H 18 121/95 96 - Physical Examination General: No Apparent Distress Neck: Positive: trachea midline Cardiac: Positive: Reg Rate and Rhythm Lungs: Positive: Normal Breath Sounds Neuro: Positive: Grossly Intact Abdomen: Positive: Soft, Active Bowel Sounds Skin: Negative: Rash, Suspicious Lesions, Ulceration Extremities: Present: upper extr. pulses, edema - Labs and Meds Comprehensive Metabolic Panel 09/21/21 Range/Units 04:08 Sodium 139 (137-145) mmol/L Potassium 3.1 L (3.6-5.0) mmol/L Chloride 99.7 (98-107) mmol/L Carbon Dioxide 28 (22-30) mmol/L BUN 34 H (9-20) mg/dL Creatinine 1.7 H (0.8-1.3) mg/dL Glucose 101 H (75-100) mg/dL Calcium 8.4 (8.4-10.2) mg/dL
[2021-09-21] MEDS: METOPROLOL TARTRATE 100 MG TAB PO SCH ×2 (15:00→21:27)
[2021-09-21] MEDS: hydrALAZINE 25 MG TAB PO SCH ×2 (15:01→21:26)
--- NOTE | 2021-09-21 15:18 | Progress Note ---
Assessment and Plan Assessment and plan: Echo 09/17/2021-EF 15 to 20%. Lt ventricle severely dilated. Mild concentric LVH. Mild diastolic dysfunction / impaired relaxation pattern. No pericardial effusion Preliminary results Lexiscan MPI stress test 09/21/2021-negative for ischemia. Dilated LV. Estimated EF 10% 55-year-old male presented to the hospital with complaints of reported bleeding admitted for possible CHF exacerbation. 09/18: Continue diuresis as tolerated, follow 2D echocardiogram report, monitor BMP. Cardiology and nephrology following 09/19: 2D echo reveals EF of 15 to 20%, renal ultrasound showed no acute abnormality. Continue aggressive diuresis, continue to monitor renal function and follow cardiology recommendation 09/20: Continue diuresis and continue to follow BMP. Monitor ins and O's and daily weight. Assessment and plan: --Acute systolic congestive heart failure; Strict I's/O, monitoring output every shift, daily weight, afterload reduction, blood pressure control, thyroid panel, magnesium level, cardiology team consulted in ED, echocardiogram ordered and is pending at time of admission, supplemental oxygen. --Acute cardiomyopathy; EF 15 to 20% Continue antifailure medications, Cardiology following Diuretics, beta-blockers, input output monitoring, fluid restriction, low-sodium diet, no CARLTON inhibitors due to acute kidney injury, -- acute kidney injury (CORBY) with acute tubular necrosis (ATN) BMP, IV fluid resuscitation therapy as clinical indicated, repeat BMP in a.m. to monitor serum creatinine as well as GFR. -- Cardiorenal syndrome supportive care, monitor fluid balance, strict I's/O, nephrology team consulted in ED -- SIRS (systemic inflammatory response syndrome) CBC, chest x-ray, urinalysis, empiric IV antibiotic therapy x1 dose, repeat CBC in a.m. -- Accelerated hypertension Monitor blood pressure every shift, continue medical management. --UTI (urinary tract infection) Urinalysis, IV antibiotic therapy, --DVT prophylaxis SCD to bilateral lower extremities while in bed --Advance care planning Disease education conducted, care plan discussed, diagnoses discussed, prognosis discussed, patient is full code. Patient acknowledges understanding and agreement with care plan, +30 minutes. -- Preventive health care Patient counseled regarding balanced diet, risk factor reduction, increase physical activity discharge, meal planning, outpatient follow-up with primary care physician for all age- appropriate and risk factor appropriate screening test. +30 minutes. Closely monitor the patient and adjust management as needed Jewel Hole Cornerer recommendations noted and appreciated Plan of care reviewed with the patient and his nurse History Interval history: I have seen and examined the patient at the bedside this afternoon Patient's chart and medications reviewed Patient underwent stress test and echocardiogram Reports reviewed Patient feels slightly better denies any chest pain or shortness of breath Hospitalist Physical - Constitutional Vitals: Temp Pulse Resp BP Pulse Ox 98.4 F 87 18 140/95 98 09/21/21 04:15 09/21/21 15:01 09/21/21 04:15 09/21/21 15:01 09/21/21 13:16 General appearance: Present: mild distress, well-nourished, obese (Morbidly obese) - EENT Eyes: Present: PERRL, EOM intact - Neck Neck: Present: supple, normal ROM - Respiratory Respiratory effort: normal Respiratory: bilateral: diminished, rales, negative: rhonchi, wheezing - Cardiovascular Rhythm: regular Heart Sounds: Present: S1 & S2 - Extremities Extremities: no ischemia Extremity abnormal: edema - Abdominal General gastrointestinal: soft, non-tender, non-distended, normal bowel sounds - Integumentary Integumentary: Present: clear, warm - Psychiatric Psychiatric: appropriate mood/affect, cooperative - Neurologic Neurologic: CNII-XII intact, moves all extremities HEART Score - HEART Score Troponin: Troponin T 0.029 ng/mL (0.00-0.029) 09/17/21 17:53 Results - Labs CBC & Chem 7: 09/18/21 04:37 09/22/21 04:43 Labs: Laboratory Last Values WBC 10.2 K/mm3 (4.5-11.0) 09/18/21 04:37 RBC 4.12 M/mm3 (3.65-5.03) 09/18/21 04:37 Hgb 12.9 gm/dl (11.8-15.2) 09/18/21 04:37 Hct 38.0 % (35.5-45.6) 09/18/21 04:37 MCV 92 fl (84-94) 09/18/21 04:37 MCH 31 pg (28-32) 09/18/21 04:37 MCHC 34 % (32-34) 09/18/21 04:37 RDW 14.4 % (13.2-15.2) 09/18/21 04:37 Plt Count 218 K/mm3 (140-440) 09/18/21 04:37 Lymph % (Auto) 7.1 % (13.4-35.0) L 09/18/21 04:37 [place] % (Auto) 3.3 % (0.0-7.3) 09/18/21 04:37 Eos % (Auto) 0.0 % (0.0-4.3) 09/18/21 04:37 Baso % (Auto) 0.2 % (0.0-1.8) 09/18/21 04:37 Lymph # (Auto) 0.7 K/mm3 (1.2-5.4) L 09/18/21 04:37 [place] # (Auto) 0.3 K/mm3 (0.0-0.8) 09/18/21 04:37 Eos # (Auto) 0.0 K/mm3 (0.0-0.4) 09/18/21 04:37 Baso # (Auto) 0.0 K/mm3 (0.0-0.1) 09/18/21 04:37 Add Manual Diff Complete 09/17/21 15:55 Total Counted 100 09/17/21 15:55 Seg Neutrophils % 89.4 % (40.0-70.0) H 09/18/21 04:37 Seg Neuts % (Manual) 91.0 % (40.0-70.0) H 09/17/21 15:55 Band Neutrophils % 0 % 09/17/21 15:55 Lymphocytes % (Manual) 6.0 % (13.4-35.0) L 09/17/21 15:55 Reactive Lymphs % (Man) 0 % 09/17/21 15:55 Monocytes % (Manual) 2.0 % (0.0-7.3) 09/17/21 15:55 Eosinophils % (Manual) 1.0 % (0.0-4.3) 09/17/21 15:55 Basophils % (Manual) 0 % (0.0-1.8) 09/17/21 15:55 Metamyelocytes % 0 % 09/17/21 15:55 Myelocytes % 0 % 09/17/21 15:55 Promyelocytes % 0 % 09/17/21 15:55 Blast Cells % 0 % 09/17/21 15:55 Nucleated RBC % Not Reportable 09/17/21 15:55 Seg Neutrophils # 9.1 K/mm3 (1.8-7.7) H 09/18/21 04:37 Seg Neutrophils # Man 12.5 K/mm3 (1.8-7.7) H 09/17/21 15:55 Band Neutrophils # 0.0 K/mm3 09/17/21 15:55 Lymphocytes # (Manual) 0.8 K/mm3 (1.2-5.4) L 09/17/21 15:55 Abs React Lymphs (Man) 0.0 K/mm3 09/17/21 15:55 Monocytes # (Manual) 0.3 K/mm3 (0.0-0.8) 09/17/21 15:55 Eosinophils # (Manual) 0.1 K/mm3 (0.0-0.4) 09/17/21 15:55 Basophils # (Manual) 0.0 K/mm3 (0.0-0.1) 09/17/21 15:55 Metamyelocytes # 0.0 K/mm3 09/17/21 15:55 Myelocytes # 0.0 K/mm3 09/17/21 15:55 Promyelocytes # 0.0 K/mm3 09/17/21 15:55 Blast Cells # 0.0 K/mm3 09/17/21 15:55 WBC Morphology Not Reportable 09/17/21 15:55 Hypersegmented Neuts Not Reportable 09/17/21 15:55 Hyposegmented Neuts Not Reportable 09/17/21 15:55 Hypogranular Neuts Not Reportable 09/17/21 15:55 Smudge Cells Not Reportable 09/17/21 15:55 Toxic Granulation Not Reportable 09/17/21 15:55 Toxic Vacuolation Not Reportable 09/17/21 15:55 Dohle Bodies Not Reportable 09/17/21 15:55 Pelger-Huet Anomaly Not Reportable 09/17/21 15:55 Armand Rods Not Reportable 09/17/21 15:55 Platelet Estimate Consistent w auto 09/17/21 15:55 Clumped Platelets Not Reportable 09/17/21 15:55 Plt Clumps, EDTA Not Reportable 09/17/21 15:55 Large Platelets Not Reportable 09/17/21 15:55 Giant Platelets Not Reportable 09/17/21 15:55 Platelet Satelliting Not Reportable 09/17/21 15:55 Plt Morphology Comment Not Reportable 09/17/21 15:55 RBC Morphology Normal 09/17/21 15:55 Dimorphic RBCs Not Reportable 09/17/21 15:55 Polychromasia Not Reportable 09/17/21 15:55 Hypochromasia Not Reportable 09/17/21 15:55 Poikilocytosis Not Reportable 09/17/21 15:55 Anisocytosis Not Reportable 09/17/21 15:55 Microcytosis Not Reportable 09/17/21 15:55 Macrocytosis Not Reportable 09/17/21 15:55 Spherocytes Not Reportable 09/17/21 15:55 Pappenheimer Bodies Not Reportable 09/17/21 15:55 Sickle Cells Not Reportable 09/17/21 15:55 Target Cells Not Reportable 09/17/21 15:55 Tear Drop Cells Not Reportable 09/17/21 15:55 Ovalocytes Not Reportable 09/17/21 15:55 Helmet Cells Not Reportable 09/17/21 15:55 Rajput-Dean Bodies Not Reportable 09/17/21 15:55 Pitkin Rings Not Reportable 09/17/21 15:55 [place] Cells Not Reportable 09/17/21 15:55 Bite Cells Not Reportable 09/17/21 15:55 Crenated Cell Not Reportable 09/17/21 15:55 Elliptocytes Not Reportable 09/17/21 15:55 Acanthocytes (Spur) Not Reportable 09/17/21 15:55 Rouleaux Not Reportable 09/17/21 15:55 Hemoglobin C Crystals Not Reportable 09/17/21 15:55 Schistocytes Not Reportable 09/17/21 15:55 Malaria parasites Not Reportable 09/17/21 15:55 Jabier Bodies Not Reportable 09/17/21 15:55 Hem Pathologist Commnt No 09/17/21 15:55 Sodium 139 mmol/L (137-145) 09/21/21 04:08 Potassium 3.1 mmol/L (3.6-5.0) L 09/21/21 04:08 Chloride 99.7 mmol/L (98-107) 09/21/21 04:08 Carbon Dioxide 28 mmol/L (22-30) 09/21/21 04:08 Anion Gap 14 mmol/L 09/21/21 04:08 BUN 34 mg/dL (9-20) H 09/21/21 04:08 Creatinine 1.7 mg/dL (0.8-1.3) H 09/21/21 04:08 Estimated GFR 51 ml/min 09/21/21 04:08 BUN/Creatinine Ratio 20 % 09/21/21 04:08 Glucose 101 mg/dL (75-100) H 09/21/21 04:08 Calcium 8.4 mg/dL (8.4-10.2) 09/21/21 04:08 Magnesium 2.10 mg/dL (1.7-2.3) 09/17/21 17:10 Troponin T 0.029 ng/mL (0.00-0.029) 09/17/21 17:53 NT-Pro-B Natriuret Pep 8008 pg/mL (0-900) H 09/17/21 15:55 Triglycerides 65 mg/dL (2-149) 09/17/21 15:55 Cholesterol 139 mg/dL (50-199) 09/17/21 15:55 LDL Cholesterol Direct 73 mg/dL (50-130) 09/17/21 15:55 HDL Cholesterol 57 mg/dL (40-59) 09/17/21 15:55 Cholesterol/HDL Ratio 2.43 % 09/17/21 15:55 TSH 1.710 mlU/mL (0.270-4.200) 09/17/21 17:10 Free T4 1.48 ng/dL (0.76-1.46) H 09/17/21 17:10 Urine Color Humaira (Yellow) 09/18/21 Unknown Urine Turbidity Clear (Clear) 09/18/21 Unknown Urine pH 5.0 (5.0-7.0) 09/18/21 Unknown Ur Specific Frederic 1.015 (1.003-1.030) 09/18/21 Unknown Urine Protein 30 mg/dl mg/dL (Negative) 09/18/21 Unknown Urine Glucose (UA) Neg mg/dL (Negative) 09/18/21 Unknown Urine Ketones Neg mg/dL (Negative) 09/18/21 Unknown Urine Blood Neg (Negative) 09/18/21 Unknown Urine Nitrite Neg (Negative) 09/18/21 Unknown Urine Bilirubin Neg (Negative) 09/18/21 Unknown Urine Urobilinogen 4.0 mg/dL (<2.0) 09/18/21 Unknown Ur Leukocyte Esterase Neg (Negative) 09/18/21 Unknown Urine WBC (Auto) 1.0 /HPF (0.0-6.0) 09/18/21 Unknown Urine RBC (Auto) 1.0 /HPF (0.0-6.0) 09/18/21 Unknown U Epithel Cells (Auto) < 1.0 /HPF (0-13.0) 09/18/21 Unknown Urine Bacteria (Auto) 1+ /HPF (Negative) 09/18/21 Unknown Hyaline Casts 3 /LPF 09/18/21 Unknown Urine Mucus Few /HPF 09/18/21 Unknown Urine Creatinine 182.5 mg/dL (0.1-20.0) H 09/18/21 Unknown Protein/Creatinin Ratio 0.30 09/18/21 Unknown Urine Sodium 10 mmol/L 09/18/21 Unknown Urine Total Protein 54 mg/dL (5-11.8) H 09/18/21 Unknown Coronavirus (PCR) Negative (Negative) 09/18/21 09:07 Cortes/IV: Voiding Method Toilet Active Medications - Current Medications Current Medications: Generic Name Dose Route Start Last Admin Trade Name Freq PRN Reason Stop Dose Admin Acetaminophen 650 mg 09/17/21 19:30 Acetaminophen 325 Mg Tab PO Q4H PRN Pain MILD(1-3)/Fever >100.5/LAMBERT Albuterol 2.5 mg 09/17/21 19:30 Albuterol 2.5 Mg/3 Ml Nebu IH Q4HRT PRN Shortness Of Breath Furosemide 80 mg 09/19/21 12:45 09/21/21 06:05 Furosemide 40 Mg/4 Ml Inj IV 80 mg BID@0600,1800 JIMMY Administration Heparin Sodium (Porcine) 5,000 unit 09/19/21 14:00 09/21/21 15:02 Heparin 5,000 Unit/1 Ml Vial SUB-Q 5,000 unit Q8HR JIMMY Administration Hydralazine HCl 25 mg 09/21/21 14:00 09/21/21 15:01 Hydralazine 25 Mg Tab PO 25 mg Q8HR JIMMY Administration Hydromorphone HCl 0.5 mg 09/17/21 19:30 Hydromorphone 0.5 Mg/0.5 Ml Inj IV Q23H PRN Pain , Severe (7-10) Metoprolol Tartrate 100 mg 09/21/21 11:00 09/21/21 15:00 Metoprolol Tartrate 100 Mg Tab PO 100 mg BID JIMMY Administration Ondansetron HCl 4 mg 09/17/21 19:30 Ondansetron 4 Mg/2 Ml Inj IV Q8H PRN Nausea And Vomiting Oxycodone/Acetaminophen 1 tab 09/17/21 19:30 Oxycodone /Acetaminophen 5-325mg Tab PO Q6H PRN Pain, Moderate (4-6) Sodium Chloride 10 ml 09/17/21 22:00 09/21/21 15:04 Sodium Chloride 0.9% 10 Ml Flush Syringe IV 10 ml BID JIMMY Administration Sodium Chloride 10 ml 09/17/21 19:30 Sodium Chloride 0.9% 10 Ml Flush Syringe IV PRN PRN LINE FLUSH
[2021-09-21] MEDS: METOPROLOL TARTRATE 50 MG TAB PO SCH (20:23)
[2021-09-22 05:30] LABS: BUN/Creatinine Ratio 18; Blood Urea Nitrogen 25 mg/dL (9-20); Calcium 8.3 mg/dL (8.4-10.2); Hemolysis Index 17
[2021-09-22] MEDS: FUROSEMIDE 40 MG/4 ML INJ IV SCH ×2 (06:20→15:02)
[2021-09-22] MEDS: hydrALAZINE 25 MG TAB PO SCH ×3 (06:21→14:57)
[2021-09-22] MEDS: HEPARIN 5,000 UNIT/1 ML VIAL SUB-Q SCH ×2 (06:23→14:56)
--- NOTE | 2021-09-22 08:58 | Nuclear Medicine Report ---
APPROVED REPORT Exam: Nuclear Stress Test Indication: Chest pain Patient Location: [facility] 1ST FLOOR Room #: [id number] Ht: 5 ft 10 in Wt: 256 lbs BSA: 2.32 m2 HR: 103 bpmBP: 164/122 mmHgBMI: 36.72 Rhythm: Sinus Tachycardia Stress Test Details Stress Test: Pharmacologic stress testing performed using 0.4 mg of regadenoson per 5 mL given IV over 10 seconds. Reason for pharmacologic stress test: physical limitation. HR Resting HR: 98 bpm Max HR Achieved: 109 bpm Max Heart Rate (APMHR): 167.151203 bpm Target HR (85% APMHR): 141.877249 bpm % of APMHR: 65.27 Recovery HR: 102 bpm HR response to stress: Normal HR response to stress BP Resting BP: 132/92 mmHg Max BP: 164/122 mmHg Recovery BP: 141/96 mmHg BP response to stress: Abnormal hypertensive response to stress. ECG Resting ECG: Sinus Rhythm Stress ECG: Sinus Tachycardia Arrhythmia: None Recovery ECG: Sinus Tachycardia Recovery Arrhythmia: None Clinical Reason for Termination: Completed protocol Stress Symptoms: None NM EXAM: Myocardial Perfusion REST/STRESS Imaging Protocol: Rest Tc-99m/Stress Tc-99m 1 day Resting Data Rest SPECT myocardial perfusion imaging was performed in supine position 45 minutes following the intravenous injection of 45 mCi of Tc-99m Myoview. Time of rest injection: 0700 Pharmacologic Stress Pharmacologic stress test was performed by injecting Regadenoson 0.4 mg IV push followed by the intravenous injection of 28 mCi of Tc-99m Myoview. Time of stress injection: 09:24:23 Gated Stress SPECT was performed 30 minutes after stress injection. The images were gated to evaluate regional wall motion and calculate left ventricular ejection fraction. Study Quality Study: excellent Lung Uptake: Normal Study Data TID = 1.01. Perfusion Wall Motion Severely decreased left ventricular systolic function. Nuclear Conclusion ECG Findings: negative for ischemia Clinical Findings: negative for ischemia Nuclear Findings: negative for ischemia Exercise Capacity: not assessed Left Ventricular Function: abnormal negative lexiscan ekg no signficant ischemia noted dilated lv severely in rest and stress and fixed defect inferior There is a medium area of moderately reduced uptake in the entire segment of the inferior wall which is seen on the stress images as well as the resting images. ef 10%
--- NOTE | 2021-09-22 09:12 | Progress Note ---
Assessment and Plan Assessment and plan: Echo 09/17/2021-EF 15 to 20%. Lt ventricle severely dilated. Mild concentric LVH. Mild diastolic dysfunction / impaired relaxation pattern. No pericardial effusion Preliminary results Lexiscan MPI stress test 09/21/2021-negative for ischemia. Dilated LV. Estimated EF 10% 55-year-old male presented to the hospital with complaints of reported bleeding admitted for possible CHF exacerbation. 09/18: Continue diuresis as tolerated, follow 2D echocardiogram report, monitor BMP. Cardiology and nephrology following 09/19: 2D echo reveals EF of 15 to 20%, renal ultrasound showed no acute abnormality. Continue aggressive diuresis, continue to monitor renal function and follow cardiology recommendation 09/20: Continue diuresis and continue to follow BMP. Monitor ins and O's and daily weight. Assessment and plan: --Acute systolic congestive heart failure; Strict I's/O, monitoring output every shift, daily weight, afterload reduction, blood pressure control, thyroid panel, magnesium level, cardiology team consulted in ED, echocardiogram ordered and is pending at time of admission, supplemental oxygen. --Acute cardiomyopathy; EF 15 to 20% Continue antifailure medications, Cardiology following Diuretics, beta-blockers, input output monitoring, fluid restriction, low-sodium diet, no CARLTON inhibitors due to acute kidney injury, -- acute kidney injury (CORBY) with acute tubular necrosis (ATN) BMP, IV fluid resuscitation therapy as clinical indicated, repeat BMP in a.m. to monitor serum creatinine as well as GFR. -- Cardiorenal syndrome supportive care, monitor fluid balance, strict I's/O, nephrology team consulted in ED -- SIRS (systemic inflammatory response syndrome) CBC, chest x-ray, urinalysis, empiric IV antibiotic therapy x1 dose, repeat CBC in a.m. -- Accelerated hypertension Monitor blood pressure every shift, continue medical management. --UTI (urinary tract infection) Urinalysis, IV antibiotic therapy, --DVT prophylaxis SCD to bilateral lower extremities while in bed --Advance care planning Disease education conducted, care plan discussed, diagnoses discussed, prognosis discussed, patient is full code. Patient acknowledges understanding and agreement with care plan, +30 minutes. -- Preventative health care Patient counseled regarding balanced diet, risk factor reduction, increase physical activity discharge, meal planning, outpatient follow-up with primary care physician for all age- appropriate and risk factor appropriate screening test. +30 minutes. Closely monitor the patient and adjust management as needed At Risk Specialist recommendations noted and appreciated Plan of care reviewed with the patient and his nurse Hospitalist Physical - Constitutional Vitals: Temp Pulse Resp BP Pulse Ox 98.6 F 103 H 18 157/117 91 09/22/21 08:08 09/22/21 08:08 09/22/21 08:08 09/22/21 08:08 09/22/21 08:08 General appearance: Present: mild distress, well-nourished, obese (Morbidly obese) HEART Score - HEART Score Troponin: Troponin T 0.029 ng/mL (0.00-0.029) 09/17/21 17:53 Results - Labs CBC & Chem 7: 09/18/21 04:37 09/22/21 04:43 Labs: Laboratory Last Values WBC 10.2 K/mm3 (4.5-11.0) 09/18/21 04:37 RBC 4.12 M/mm3 (3.65-5.03) 09/18/21 04:37 Hgb 12.9 gm/dl (11.8-15.2) 09/18/21 04:37 Hct 38.0 % (35.5-45.6) 09/18/21 04:37 MCV 92 fl (84-94) 09/18/21 04:37 MCH 31 pg (28-32) 09/18/21 04:37 MCHC 34 % (32-34) 09/18/21 04:37 RDW 14.4 % (13.2-15.2) 09/18/21 04:37 Plt Count 218 K/mm3 (140-440) 09/18/21 04:37 Lymph % (Auto) 7.1 % (13.4-35.0) L 09/18/21 04:37 Franklin % (Auto) 3.3 % (0.0-7.3) 09/18/21 04:37 Eos % (Auto) 0.0 % (0.0-4.3) 09/18/21 04:37 Baso % (Auto) 0.2 % (0.0-1.8) 09/18/21 04:37 Lymph # (Auto) 0.7 K/mm3 (1.2-5.4) L 09/18/21 04:37 Franklin # (Auto) 0.3 K/mm3 (0.0-0.8) 09/18/21 04:37 Eos # (Auto) 0.0 K/mm3 (0.0-0.4) 09/18/21 04:37 Baso # (Auto) 0.0 K/mm3 (0.0-0.1) 09/18/21 04:37 Add Manual Diff Complete 09/17/21 15:55 Total Counted 100 09/17/21 15:55 Seg Neutrophils % 89.4 % (40.0-70.0) H 09/18/21 04:37 Seg Neuts % (Manual) 91.0 % (40.0-70.0) H 09/17/21 15:55 Band Neutrophils % 0 % 09/17/21 15:55 Lymphocytes % (Manual) 6.0 % (13.4-35.0) L 09/17/21 15:55 Reactive Lymphs % (Man) 0 % 09/17/21 15:55 Monocytes % (Manual) 2.0 % (0.0-7.3) 09/17/21 15:55 Eosinophils % (Manual) 1.0 % (0.0-4.3) 09/17/21 15:55 Basophils % (Manual) 0 % (0.0-1.8) 09/17/21 15:55 Metamyelocytes % 0 % 09/17/21 15:55 Myelocytes % 0 % 09/17/21 15:55 Promyelocytes % 0 % 09/17/21 15:55 Blast Cells % 0 % 09/17/21 15:55 Nucleated RBC % Not Reportable 09/17/21 15:55 Seg Neutrophils # 9.1 K/mm3 (1.8-7.7) H 09/18/21 04:37 Seg Neutrophils # Man 12.5 K/mm3 (1.8-7.7) H 09/17/21 15:55 Band Neutrophils # 0.0 K/mm3 09/17/21 15:55 Lymphocytes # (Manual) 0.8 K/mm3 (1.2-5.4) L 09/17/21 15:55 Abs React Lymphs (Man) 0.0 K/mm3 09/17/21 15:55 Monocytes # (Manual) 0.3 K/mm3 (0.0-0.8) 09/17/21 15:55 Eosinophils # (Manual) 0.1 K/mm3 (0.0-0.4) 09/17/21 15:55 Basophils # (Manual) 0.0 K/mm3 (0.0-0.1) 09/17/21 15:55 Metamyelocytes # 0.0 K/mm3 09/17/21 15:55 Myelocytes # 0.0 K/mm3 09/17/21 15:55 Promyelocytes # 0.0 K/mm3 09/17/21 15:55 Blast Cells # 0.0 K/mm3 09/17/21 15:55 WBC Morphology Not Reportable 09/17/21 15:55 Hypersegmented Neuts Not Reportable 09/17/21 15:55 Hyposegmented Neuts Not Reportable 09/17/21 15:55 Hypogranular Neuts Not Reportable 09/17/21 15:55 Smudge Cells Not Reportable 09/17/21 15:55 Toxic Granulation Not Reportable 09/17/21 15:55 Toxic Vacuolation Not Reportable 09/17/21 15:55 Dohle Bodies Not Reportable 09/17/21 15:55 Pelger-Huet Anomaly Not Reportable 09/17/21 15:55 Armand Rods Not Reportable 09/17/21 15:55 Platelet Estimate Consistent w auto 09/17/21 15:55 Clumped Platelets Not Reportable 09/17/21 15:55 Plt Clumps, EDTA Not Reportable 09/17/21 15:55 Large Platelets Not Reportable 09/17/21 15:55 Giant Platelets Not Reportable 09/17/21 15:55 Platelet Satelliting Not Reportable 09/17/21 15:55 Plt Morphology Comment Not Reportable 09/17/21 15:55 RBC Morphology Normal 09/17/21 15:55 Dimorphic RBCs Not Reportable 09/17/21 15:55 Polychromasia Not Reportable 09/17/21 15:55 Hypochromasia Not Reportable 09/17/21 15:55 Poikilocytosis Not Reportable 09/17/21 15:55 Anisocytosis Not Reportable 09/17/21 15:55 Microcytosis Not Reportable 09/17/21 15:55 Macrocytosis Not Reportable 09/17/21 15:55 Spherocytes Not Reportable 09/17/21 15:55 Pappenheimer Bodies Not Reportable 09/17/21 15:55 Sickle Cells Not Reportable 09/17/21 15:55 Target Cells Not Reportable 09/17/21 15:55 Tear Drop Cells Not Reportable 09/17/21 15:55 Ovalocytes Not Reportable 09/17/21 15:55 Helmet Cells Not Reportable 09/17/21 15:55 Rajput-[place] Bodies Not Reportable 09/17/21 15:55 Custer Rings Not Reportable 09/17/21 15:55 Martha Cells Not Reportable 09/17/21 15:55 Bite Cells Not Reportable 09/17/21 15:55 Crenated Cell Not Reportable 09/17/21 15:55 Elliptocytes Not Reportable 09/17/21 15:55 Acanthocytes (Spur) Not Reportable 09/17/21 15:55 Rouleaux Not Reportable 09/17/21 15:55 Hemoglobin C Crystals Not Reportable 09/17/21 15:55 Schistocytes Not Reportable 09/17/21 15:55 Malaria parasites Not Reportable 09/17/21 15:55 Jabier Bodies Not Reportable 09/17/21 15:55 Hem Pathologist Commnt No 09/17/21 15:55 Sodium 139 mmol/L (137-145) 09/22/21 04:43 Potassium 3.2 mmol/L (3.6-5.0) L 09/22/21 04:43 Chloride 99.5 mmol/L (98-107) 09/22/21 04:43 Carbon Dioxide 30 mmol/L (22-30) 09/22/21 04:43 Anion Gap 13 mmol/L 09/22/21 04:43 BUN 25 mg/dL (9-20) H 09/22/21 04:43 Creatinine 1.4 mg/dL (0.8-1.3) H 09/22/21 04:43 Estimated GFR > 60 ml/min 09/22/21 04:43 BUN/Creatinine Ratio 18 % 09/22/21 04:43 Glucose 99 mg/dL (75-100) 09/22/21 04:43 Calcium 8.3 mg/dL (8.4-10.2) L 09/22/21 04:43 Magnesium 2.10 mg/dL (1.7-2.3) 09/17/21 17:10 Troponin T 0.029 ng/mL (0.00-0.029) 09/17/21 17:53 NT-Pro-B Natriuret Pep 8008 pg/mL (0-900) H 09/17/21 15:55 Triglycerides 65 mg/dL (2-149) 09/17/21 15:55 Cholesterol 139 mg/dL (50-199) 09/17/21 15:55 LDL Cholesterol Direct 73 mg/dL (50-130) 09/17/21 15:55 HDL Cholesterol 57 mg/dL (40-59) 09/17/21 15:55 Cholesterol/HDL Ratio 2.43 % 09/17/21 15:55 TSH 1.710 mlU/mL (0.270-4.200) 09/17/21 17:10 Free T4 1.48 ng/dL (0.76-1.46) H 09/17/21 17:10 Urine Color Humaira (Yellow) 09/18/21 Unknown Urine Turbidity Clear (Clear) 09/18/21 Unknown Urine pH 5.0 (5.0-7.0) 09/18/21 Unknown Ur Specific [place] 1.015 (1.003-1.030) 09/18/21 Unknown Urine Protein 30 mg/dl mg/dL (Negative) 09/18/21 Unknown Urine Glucose (UA) Neg mg/dL (Negative) 09/18/21 Unknown Urine Ketones Neg mg/dL (Negative) 09/18/21 Unknown Urine Blood Neg (Negative) 09/18/21 Unknown Urine Nitrite Neg (Negative) 09/18/21 Unknown Urine Bilirubin Neg (Negative) 09/18/21 Unknown Urine Urobilinogen 4.0 mg/dL (<2.0) 09/18/21 Unknown Ur Leukocyte Esterase Neg (Negative) 09/18/21 Unknown Urine WBC (Auto) 1.0 /HPF (0.0-6.0) 09/18/21 Unknown Urine RBC (Auto) 1.0 /HPF (0.0-6.0) 09/18/21 Unknown U Epithel Cells (Auto) < 1.0 /HPF (0-13.0) 09/18/21 Unknown Urine Bacteria (Auto) 1+ /HPF (Negative) 09/18/21 Unknown Hyaline Casts 3 /LPF 09/18/21 Unknown Urine Mucus Few /HPF 09/18/21 Unknown Urine Creatinine 182.5 mg/dL (0.1-20.0) H 09/18/21 Unknown Protein/Creatinin Ratio 0.30 09/18/21 Unknown Urine Sodium 10 mmol/L 09/18/21 Unknown Urine Total Protein 54 mg/dL (5-11.8) H 09/18/21 Unknown Coronavirus (PCR) Negative (Negative) 09/18/21 09:07 Cortes/IV: Voiding Method Toilet Active Medications - Current Medications Current Medications: Generic Name Dose Route Start Last Admin Trade Name Freq PRN Reason Stop Dose Admin Acetaminophen 650 mg 09/17/21 19:30 Acetaminophen 325 Mg Tab PO Q4H PRN Pain MILD(1-3)/Fever >100.5/LAMBERT Albuterol 2.5 mg 09/17/21 19:30 Albuterol 2.5 Mg/3 Ml Nebu IH Q4HRT PRN Shortness Of Breath Furosemide 80 mg 09/19/21 12:45 09/22/21 06:20 Furosemide 40 Mg/4 Ml Inj IV 80 mg BID@0600,1800 JIMMY Administration Heparin Sodium (Porcine) 5,000 unit 09/19/21 14:00 09/22/21 06:23 Heparin 5,000 Unit/1 Ml Vial SUB-Q 5,000 unit Q8HR JIMMY Administration Hydralazine HCl 25 mg 09/21/21 14:00 09/22/21 06:21 Hydralazine 25 Mg Tab PO 25 mg Q8HR JIMMY Administration Hydromorphone HCl 0.5 mg 09/17/21 19:30 Hydromorphone 0.5 Mg/0.5 Ml Inj IV Q23H PRN Pain , Severe (7-10) Metoprolol Tartrate 100 mg 09/21/21 11:00 09/21/21 21:27 Metoprolol Tartrate 100 Mg Tab PO 100 mg BID JIMMY Administration Ondansetron HCl 4 mg 09/17/21 19:30 Ondansetron 4 Mg/2 Ml Inj IV Q8H PRN Nausea And Vomiting Oxycodone/Acetaminophen 1 tab 09/17/21 19:30 Oxycodone /Acetaminophen 5-325mg Tab PO Q6H PRN Pain, Moderate (4-6) Sodium Chloride 10 ml 09/17/21 22:00 09/21/21 21:27 Sodium Chloride 0.9% 10 Ml Flush Syringe IV 10 ml BID JIMMY Administration Sodium Chloride 10 ml 09/17/21 19:30 Sodium Chloride 0.9% 10 Ml Flush Syringe IV PRN PRN LINE FLUSH
[2021-09-22] MEDS ORDERED: SPIRONOLACTONE 25 MG TAB PO SCH (10:00)
--- NOTE | 2021-09-22 10:03 | Progress Note ---
Assessment and Plan Patient is a 55-year-old male with a past medical history of hypertension and TIFFANIE presented with a complaint of shortness of breath for 2-week prior to admission Acute hypoxic respiratory failure Acute HFrEF CORBY-nephrology following Cardiorenal syndrome Hypertension Echo 09/17/2021-EF 15 to 20%. Left ventricle severely dilated. Mild concentric LVH. Mild diastolic dysfunction is present impaired relaxation pattern. No pericardial effusion Preliminary results Lexiscan MPI stress test 09/21/2021-negative for ischemia. Dilated LV. Estimated EF 10% Plan: Echo and stress results noted above Patient reports improvement in respiratory status and reports to continue to have good urine output Continue on Lasix 80 mg IV twice daily for diuresis. When patient is to be discharged patient will be converted to Lasix 40 mg p.o. twice daily Strict I&O's with close monitoring of renal function No CARLTON or ARB due to elevated creatinine Continue metoprolol 100 mg p.o. twice daily Patient remains hypertensive will increase to hydralazine 50 mg p.o. every 8 hours and initiate Aldactone 25mg PO QD and Imdur30 mg PO QD Patient seen in conjunction with Dr. Ornelas who agrees with plan of care - Patient Problems (1) HFrEF (heart failure with reduced ejection fraction) Current Visit: Yes Status: Acute (2) Accelerated hypertension Current Visit: No Status: Acute (3) Acute kidney injury (CORBY) with acute tubular necrosis (ATN) Current Visit: No Status: Acute (4) Cardiorenal syndrome Current Visit: No Status: Acute Subjective Date of service: 09/22/21 Principal diagnosis: Acute HFrEF Interval history: Patient walking around the room in no acute distress. Patient reports decrease in bilateral lower extremity edema continues to report good urine output Sinus 80s to 90s on monitor with no events Objective Vital Signs Temp Pulse Resp BP BP Pulse Ox 09/22/21 08:08 98.6 F 103 H 18 157/117 91 09/22/21 06:21 82 149/102 09/22/21 05:04 98.5 F 09/22/21 03:41 82 18 149/102 96 09/22/21 00:35 98.7 F 88 18 144/102 96 09/22/21 00:30 82 18 144/102 97 09/21/21 22:00 92 H 98 09/21/21 21:27 98 H 134/87 09/21/21 21:26 98 H 134/87 09/21/21 20:00 98.5 F 98 H 18 134/87 100 09/21/21 19:29 18 134/87 09/21/21 16:21 98.6 F 96 H 134/88 96 09/21/21 15:01 87 140/95 09/21/21 15:00 87 140/95 09/21/21 13:16 98 09/21/21 10:14 93 - Physical Examination General: No Apparent Distress Neck: Positive: trachea midline Cardiac: Positive: Reg Rate and Rhythm Lungs: Positive: Normal Breath Sounds Neuro: Positive: Grossly Intact Abdomen: Positive: Soft, Active Bowel Sounds Skin: Negative: Rash, Suspicious Lesions, Ulceration Extremities: Present: upper extr. pulses, edema - Labs and Meds Comprehensive Metabolic Panel 09/22/21 Range/Units 04:43 Sodium 139 (137-145) mmol/L Potassium 3.2 L (3.6-5.0) mmol/L Chloride 99.5 (98-107) mmol/L Carbon Dioxide 30 (22-30) mmol/L BUN 25 H (9-20) mg/dL Creatinine 1.4 H (0.8-1.3) mg/dL Glucose 99 (75-100) mg/dL Calcium 8.3 L (8.4-10.2) mg/dL - Imaging and Cardiology Nuclear stress test: report reviewed Echo: report reviewed - Telemetry EKG Rhythm: Sinus Rhythm - EKG Sinus rhythms and dysrhythmias: sinus rhythm
[2021-09-22] MEDS: METOPROLOL TARTRATE 100 MG TAB PO SCH (10:18)
[2021-09-22 11:23] VITALS: BP 128/91
--- NOTE | 2021-09-22 13:13 | Discharge Summary ---
Providers - Providers Date of Admission: 09/17/21 19:30 Date of discharge: 09/22/21 Attending physician: FIDELINA QUINONES 09/17/21 19:28 Consult to Physician [CONS] Urgent Comment: Consulting Provider: STEPHANIE PEDRO Physician Instructions: Reason For Exam: CHF 09/17/21 20:48 Consult to Physician [CONS] Routine Comment: Consulting Provider: LLOYD CRUZ Physician Instructions: Reason For Exam: Cardiorenal syndrome Primary care physician: MONOTYPER Hospitalization Reason for admission: Worsening shortness of breath Condition: Stable Pertinent studies: Chest x-ray cardiac enlargement with mild congestion of the pulmonary vasculature Stress test; no evidence of ischemia echocardiogram; LVEF 15 to 20% mild concentric LVH severe global hypokinesis of left ventricle Renal ultrasound no acute renal abnormality Trace ascites and contracted appearance of the gallbladder Hospital course: Echo 09/17/2021-EF 15 to 20%. Lt ventricle severely dilated. Mild concentric LVH. Mild diastolic dysfunction / impaired relaxation pattern. No pericardial effusion Preliminary results Lexiscan MPI stress test 09/21/2021-negative for ischemia. Dilated LV. Estimated EF 10% 55-year-old male presented to the hospital with complaints of worsening shortness of breath, admitted for possible CHF exacerbation. 09/18: Continue diuresis as tolerated, follow 2D echocardiogram report, monitor BMP. Cardiology and nephrology following 09/19: 2D echo reveals EF of 15 to 20%, renal ultrasound showed no acute abnormality. Continue aggressive diuresis, continue to monitor renal function and follow cardiology recommendation 09/20: Continue diuresis and continue to follow BMP. Monitor ins and O's and daily weight. Assessment and plan: --Acute systolic congestive heart failure; Strict I's/O, monitoring output every shift, daily weight, afterload reduction, blood pressure control, thyroid panel, magnesium level, cardiology team consulted in ED, echocardiogram ordered and is pending at time of admission, supplemental oxygen. --Acute cardiomyopathy; EF 15 to 20% Continue antifailure medications, Cardiology following Diuretics, beta-blockers, input output monitoring, fluid restriction, low-sodium diet, no CARLTON inhibitors due to acute kidney injury, -- acute kidney injury (CORBY) with acute tubular necrosis (ATN) BMP, IV fluid resuscitation therapy as clinical indicated, repeat BMP in a.m. to monitor serum creatinine as well as GFR. -- Cardiorenal syndrome supportive care, monitor fluid balance, strict I's/O, nephrology team consulted in ED -- SIRS (systemic inflammatory response syndrome) CBC, chest x-ray, urinalysis, empiric IV antibiotic therapy x1 dose, repeat CBC in a.m. -- Accelerated hypertension Monitor blood pressure every shift, continue medical management. --UTI (urinary tract infection) Urinalysis, IV antibiotic therapy, --Morbid obesity; BMI 40.1 diet modification, exercise as tolerated and weight reduction When medically stable --DVT prophylaxis SCD to bilateral lower extremities while in bed --Advance care planning Disease education conducted, care plan discussed, diagnoses discussed, prognosis discussed, patient is full code. Patient acknowledges understanding and agreement with care plan, +30 minutes. -- Preventative health care Patient counseled regarding balanced diet, risk factor reduction, increase physical activity discharge, meal planning, outpatient follow-up with primary care physician for all age- appropriate and risk factor appropriate screening test. +30 minutes. Disposition: 01 HOME / SELF CARE / HOMELESS Final Discharge Diagnosis (Prints w/discharge instructions): Acute systolic congestive heart failure. Acute cardiomyopathy EF 15 to 20%. Acute kidney injury due to tubular necrosis. Cardiorenal syndrome. SIRS systemic inflammatory response syndrome. Accelerated hypertension. Urinary tract infection Time spent for discharge: 40 min Core Measure Documentation - Palliative Care Palliative Care/ Comfort Measures: Not Applicable - Core Measures Any of the following diagnoses?: heart failure - Heart Failure Discharge Requirements CARLTON/ARB for LVSD if EF <40%: No Reason for no CARLTON/ARB: Renal impairment Beta brandi at discharge: Yes Exam - Constitutional Vitals: Temp Pulse Resp BP Pulse Ox 98.2 F 80 18 128/91 98 09/22/21 11:21 09/22/21 11:21 09/22/21 11:21 09/22/21 11:21 09/22/21 11:21 General appearance: Present: no acute distress, well-nourished - EENT Eyes: Present: PERRL, EOM intact - Neck Neck: Present: supple, normal ROM - Respiratory Respiratory effort: normal Respiratory: bilateral: diminished, rales, negative: rhonchi, wheezing - Cardiovascular Rhythm: regular Heart Sounds: Present: S1 & S2 - Extremities Extremities: no ischemia, No edema - Abdominal General gastrointestinal: Present: soft, non-tender, non-distended, normal bowel sounds - Integumentary Integumentary: Present: clear, warm - Musculoskeletal Musculoskeletal: strength equal bilaterally, generalized weakness - Psychiatric Psychiatric: appropriate mood/affect, cooperative - Neurologic Neurologic: CNII-XII intact, moves all extremities Plan Activity: advance as tolerated Diet: low salt, other (Cardiac diet) Additional Instructions: If you have worsening symptoms contact MD or go to the nearest emergency room as needed. Strongly advised to comply with medications, diet, exercises as tolerated, follow-up visits as needed. Follow-up with pr imary care physician in 1 week, inside sales lead Dr. Ornelas in 1 week . Follow up with: PRIMARY CARE, [Primary Care Provider] - 7 Days NATACHA ORNELAS MD [Staff Physician] - 7 Days Prescriptions: Spironolactone [Aldactone] 25 mg PO QDAY #30 tablet hydrALAZINE [Apresoline TAB] 50 mg PO Q8HR #90 tablet ISOSORBIDE MONOnitrate [Imdur ER] 30 mg PO QDAY #30 tablet Furosemide [Lasix TAB] 40 mg PO BID #60 tablet levoFLOXacin [Levaquin TAB] 500 mg PO QDAY #5 tablet Metoprolol [Lopressor TAB] 100 mg PO BID #60 tablet
--- NOTE | 2021-09-26 11:28 | Electrocardiograph Report ---
[facility] Test Date: 2021-09-17 Test Time: 15:32:19 Pat Name: MINO CHOU Department: Room: A452 Gender: M [employer]: JULISSA : 1965 Requested By: RYLAN WRIGHT Order Number: [id number] Reading MD: Allen Snell Measurements Intervals [place] Rate: 132 P: 61 NV: 138 QRS: -16 QRSD: 108 T: 169 QT: 324 QTc: 480 Interpretive Statements Sinus tachycardia Ventricular premature complex LVH with secondary repolarization abnormality Anterior ST elevation, probably due to LVH POSSIBLE PRIOR ASMI No previous ECG available for comparison Electronically Signed On 09-26-2021 11:28:15 EDT by Allen Snell
== END 2021-09-22 16:09 | disposition home or self-care (01) | DRG 291 ==
LOC: ED 13:50 → 4A 19:30
PROVIDERS: ADMIT Internal Medicine; ATTEND Internal Medicine
DX: I13.0 Hypertensive heart and chronic kidney disease with heart failure and stage 1 through stage 4 chronic kidney disease, or unspecified chronic kidney disease (principal); I50.23 Acute on chronic systolic (congestive) heart failure; N17.0 Acute kidney failure with tubular necrosis; J96.01 Acute respiratory failure with hypoxia; N39.0 Urinary tract infection, site not specified; E66.2 Morbid (severe) obesity with alveolar hypoventilation; R65.10 Systemic inflammatory response syndrome (SIRS) of non-infectious origin without acute organ dysfunction; Z20.822 Contact with and (suspected) exposure to COVID-19; I42.9 Cardiomyopathy, unspecified; I16.0 Hypertensive urgency; N18.30 Chronic kidney disease, stage 3 unspecified; Z87.891 Personal history of nicotine dependence; Z79.899 Other long term (current) drug therapy; Z82.49 Family history of ischemic heart disease and other diseases of the circulatory system; Z68.34 Body mass index [BMI] 34.0-34.9, adult; Z71.3 Dietary counseling and surveillance
CPT/HCPCS: 36415; 71046; 76770; 78452; 80048; 80061; 81001; 82570; 83735; 83880; 84156; 84300; 84439; 84443; 84484; 85007; 85025; 93005; 93017; 93306; G0378; J3490; A9502; C8929; J1644; J1650; J1940; J1956; J2785; U0003